=== PATIENT | male | born 2000 | race Caucasian/White ===

== ENCOUNTER 2023-02-04 11:49 | Observation (INO) | payer OTHER ==
--- OUTSIDE RECORDS SUMMARY | 2023-02-04 11:57 | XMS REPORT | Continuity of Care Document ---
:2000 Author Organization [facility] t Address [address] [place] [address]. [address] [place] [address] Care Team Providers Name Role Phone BRYSON LACEYJoelRODRICK Primary Care Physician Unavailable PATEL_NILESH Attending Clinician Unavailable Michael Blount Attending Clinician Unavailable Bernardo Gaona Attending Clinician Unavailable MARK LOMBARDO Attending Clinician Unavailable Dena Kevin MD Attending Clinician Mark Lombardo MD Attending Clinician Nurse, Clementine Urgent Attending Clinician Unavailable Unknown, Attending Attending Clinician Unavailable You Dickerson Attending Clinician YOU HANSON Attending Clinician Unavailable UNKNOWN, ATTENDING Attending Clinician Unavailable Doctor Unassigned, [place] Attending Clinician Unavailable PATEL_NILESH Admitting Clinician Unavailable Physician, No Primary or Family Admitting Clinician UnavailDENA Victor Admitting Clinician Unavailable Payers Payer Name Policy Type Policy Number Effective Date Expiration Date Luis danielle [place] [id number] 2022 [employer] 00:00:00 [facility] [id number] 2022 [employer] [place] 00:00[place]00 (MEDICAID HMO[place]: [id number] 2022 [employer] 00:00:00 - C - [facility] [id number] 2016 2022 [employer] 00:00:00 00:00:00 (MEDICAID HMO[place] [id number] 2022 [employer] 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 3-27 da al al 00:00: [facility] disability Disability 00 al Health Outre[facility] Program Cognitive Cognitive Disease Active Uni vers impairment impairment 9-25 it y of 00:00: [place] 00 Medical Branch Disease Active Univers birthweigh birthweigh 7-20 it y of t less t less 00:00: [place] than 1000 than 1000 00 Medi malou gram and gram and Branch gestation gestation less than less than 28 weeks 28 weeks Pervasive Pervasive Disease Active 2011-06 Uni vers developmen developmen 0-26 it y of luis alfredo luis alfredo 00:00: [place] disorder disorder 00 Medica l Branch 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 Other Other Disease Active 2005- Univers 3-08 ity of infants, infants, 00:00: [place] unspecifie unspecifie 00 Me dical d d Branch (weight)(7 (weight)(7 65.10) 65.10) Allergies, Adverse Reactions, Alerts Allergy Allergy Status Severity Reaction(s) Onset Inactive Treating Comm ents Source Name Type Date Date Clinician No Known DA Active U [facility] Drug -18 Allergie 00:00: s 00 No Known DA Active U 2011-06 [facility] [place] s 00:00: d 00 [facility] NO KNOWN Drug Active Univers ALLERGIE Class 03-06 ity of S 00:00: [place] 00 Medical Branch No Known Propensi Active Univer s Allergie ty to 03-06 ity of s adverse 00:00: [place] reaction 00 Medical s Branch Social History Social Habit Start Date Stop Date Quantity Comments Source Exposure to 2021-11-26 2021-12-06 Not sure [facility] SARS-CoV-2 (event) 00:00:00 18:02:00 Medica l Branch Alcohol intake 2016-11-03 2016-11-03 [facility] 00:00:00 00:00:00 Medical Branch Sex Assigned At 2000 2002 [facility] 00:00:00 00:00:00 Medical Branch Smoking Status Start Date Stop Date Source Never smoker [facility] [place] [facility] Medications Ordered Filled Start Stop Current Ordering Indication Dosage Frequency Signature Comments Components Source Medication Medication Date Date Medication? Clinician (SIG) Name Name taiwo 2021- No 500mg 500 mg, U nivers n 12-07 06-12 Oral, ity of (ZITHROMAX) 04:15: 03:24 [place]CE[place] 1 [place] tablet 500 00 :00 dose, On Medic al mg Sat Branch 12/06/21 at 2315, MORGAN
Re ason for Anti-Infec tive: Empiric Therapy for Suspected Infection< br>Empiric Therapy Site: Respirator y
Durat ion of therapy: 72 hours NaCl 0.9% 2021- No 1000mL at 999 Uni vers (NS) bolus 12-07-12 mL/hr, ity of infusion 00:15: 01:02 1,000 mL, Nam as 1,000 mL 00 :00 IV Medical Infusion, Branch ONCE, 1 dose, On 12/06/21 at 1915, MORGAN azithromyci 2021- No [id number] 250mg Take 1 Univers n 250 mg 12-07 tablet by ity o f tablet 00:00: 04:59 mouth [place] 00 :00 daily for Medical 4 days. Branch ipratropium 2021- No 3mL 3 mL, Univ ers -albuteroL 12-06 Inhalation it y of (DUONEB) 23:13: 23:50 , ONCE [place] 0.5 mg-3 00 :00 NOW, 1 Medical mg(2.5 mg dose, On Branch base)/3 mL Sat nebulizer 12/06/21 at solution 3 1815, mL Routine rufinamide 0 Yes 600mg Take 600 Un wai (BANZEL) 6-11 mg by ity of 200 mg 16:19: mouth 2 [place] tablet 25 (two) Medical times [place] daily with meals. CLOBAZAM Yes Take by [facility] s (ONFI ORAL) 6-11 mouth. ity of 16:19: [address] dexmethylph Yes 15mg Take 15 mg Univers enidate 6-11 by mouth ity of (FOCALIN 16:19: daily. [place] XR) 15 mg 25 Medical 24 hr Branch capsule melatonin Yes Take by [facility] rs 10 mg Cap 6-11 mouth. ity of 16:19: [address] cetirizine Yes 10mg Take 10 mg U nivers (ZYRTEC) 10 6-11 by mouth ity of mg tablet 16:19: daily. [address] DIAZEPAM 0 Yes Insert Univers RECTAL 6-11 into ity of 16:19: rectum. [address] rufinamide 0 Yes 600mg Take 600 Un wai (BANZEL) 6-11 mg by ity of 200 mg 16:19: mouth 2 [place] tablet 25 (two) Medical times [place] daily with meals. CLOBAZAM 2021-0 Yes Take by Univer s (ONFI ORAL) 6-11 mouth. ity of 16:19: [address] Branch dexmethylph 2021-0 Yes 15mg Take 15 mg Univers enidate 6-11 by mouth ity of (FOCALIN 16:19: daily. [place] XR) 15 mg 25 Medical 24 hr Branch capsule melatonin 2021-0 Yes Take by Unive rs 10 mg Cap 6-11 mouth. ity of 16:19: [address] cetirizine 2021-0 Yes 10mg Take 10 mg U nivers (ZYRTEC) 10 6-11 by mouth ity of mg tablet 16:19: daily. [address] DIAZEPAM 2021-0 Yes Insert Univers RECTAL 6-11 into ity of 16:19: rectum. [address] rufinamide 2021-0 Yes 600mg Take 600 Un wai (BANZEL) 6-11 mg by ity of 200 mg 16:19: mouth 2 [place] tablet 25 (two) Medical times [place] daily with meals. CLOBAZAM 2021-0 Yes Take by Univer s (ONFI ORAL) 6-11 mouth. ity of 16:19: [address] dexmethylph 2021-0 Yes 15mg Take 15 mg Univers enidate 6-11 by mouth ity of (FOCALIN 16:19: daily. [place] XR) 15 mg 25 Medical 24 hr Branch capsule melatonin 2021-0 Yes Take by Unive rs 10 mg Cap 6-11 mouth. ity of 16:19: [address] cetirizine 2021-0 Yes 10mg Take 10 mg U nivers (ZYRTEC) 10 6-11 by mouth ity of mg tablet 16:19: daily. [address] DIAZEPAM 2021-0 Yes Insert Univers RECTAL 6-11 into ity of 16:19: rectum. [address] ARIPiprazol 2021-0 Yes 1{tbl} Take 1 Un wai e 5 mg 2-14 tablet by ity of tablet 00:00: mouth [place] 00 every Medical morning. Branch ARIPiprazol 2021-0 Yes 1{tbl} Take 1 Un wai e 5 mg 2-14 tablet by ity of tablet 00:00: mouth [place] 00 every Medical morning. Branch ARIPiprazol Yes 1{tbl} Take 1 Un wai e 5 mg 2-14 tablet by ity of tablet 00:00: mouth [place] 00 every Medical morning. Branch rufinamide Yes 600mg Take 600 Un wai (BANZEL) 901 mg by ity of 200 mg 18:09: mouth 2 [place] tablet 59 (two) Medical times Branch daily with meals. CLOBAZAM Yes Take by [facility] s (ONFI ORAL) 02-26 mouth. ity of 18:09: [place] 59 Medical Branch dexmethylph Yes 15mg Take 15 mg Univers enidate 02-26 by mouth ity of (FOCALIN 18:09: daily. [place] XR) 15 mg 59 Medical 24 hr Branch capsule cetirizine Yes 10mg Take 10 mg U nivers (ZYRTEC) 10 02-26 by mouth ity of mg tablet 18:09: daily. [place] [address] Medical Branch DIAZEPAM Yes Insert Univers RECTAL 02-26 into ity of 18:09: rectum. [place] [address] Medical Branch melatonin Yes Take by [facility] rs 10 mg Cap 11-03 mouth. ity of 15:55: [place] [address] Medical Branch mometasone Yes Apply to Uni vers 0.1 % 5-09 area(s) 2 ity of lotion 00:00: (two) [place] 00 times Medical daily. Branch fluocinolon Yes Apply to Un wai e 5-09 area(s) 2 ity of (DERMA-SMOO 00:00: (two) [place] THE/FS BODY 00 times Medical OIL) 0.01 % daily. Branch body oil mometasone Yes Apply to Uni vers 0.1 % 5-09 area(s) 2 ity of lotion 00:00: (two) [place] 00 times Medical daily. Branch fluocinolon Yes Apply to Un wai e 5-09 area(s) 2 ity of (DERMA-SMOO 00:00: (two) [place] THE/FS BODY 00 times Medical OIL) 0.01 % daily. Branch body oil mometasone Yes Apply to Uni vers 0.1 % 5-09 area(s) 2 ity of lotion 00:00: (two) [place] 00 times Medical daily. Branch fluocinolon Yes Apply to Un wai e 11-03 area(s) 2 ity of (DERMA-SMOO 00:00: (two) [place] THE/FS BODY 00 times Medical OIL) 0.01 % daily. Branch body oil mometasone Yes Apply to Uni vers 0.1 % 11-03 area(s) 2 ity of lotion 00:00: (two) [place] 00 times Medical daily. Branch fluocinolon Yes Apply to Un wai e 509 area(s) 2 ity of (DERMA-SMOO 00:00: (two) [place] THE/FS BODY 00 times Medical OIL) 0.01 % daily. Branch body oil montelukast 2013-06 Yes TAKE 1 TAB Univers (SINGULAIR) 1-09 BY MOUTH ity of 5 mg 00:00: EVERY [place] chewable 00 EVENING. Medical tablet Branch montelukast 2013-06 Yes TAKE 1 TAB Univers (SINGULAIR) 1-09 BY MOUTH ity of 5 mg 00:00: EVERY [place] chewable 00 EVENING. Medical tablet Branch montelukast 2013-06 Yes TAKE 1 TAB Univers (SINGULAIR) 1-09 BY MOUTH ity of 5 mg 00:00: EVERY [place] chewable 00 EVENING. Medical tablet Branch montelukast 2013-06 Yes TAKE 1 TAB Univers (SINGULAIR) 1-09 BY MOUTH ity of 5 mg 00:00: EVERY [place] chewable 00 EVENING. Medical tablet Branch PROVENTIL Yes INHALE 2 Univ ers HFA 90 6-13 PUFFS ity of mcg/actuati 00:00: EVERY 4 Nam as on inhaler 00 HOURS Medic al NEEDED Branch WHEEZING AND FOR SHORTNESS OF BREATH PROVENTIL Yes INHALE 2 Univ ers HFA 90 6-13 PUFFS ity of mcg/actuati 00:00: EVERY 4 Nam as on inhaler 00 HOURS Medic al NEEDED Branch WHEEZING AND FOR SHORTNESS OF BREATH PROVENTIL Yes INHALE 2 Univ ers HFA 90 6-13 PUFFS ity of mcg/actuati 00:00: EVERY 4 Nam as on inhaler 00 HOURS Medic al NEEDED Branch WHEEZING AND FOR SHORTNESS OF BREATH PROVENTIL Yes INHALE 2 Univ ers HFA 90 6-13 PUFFS ity of mcg/actuati 00:00: EVERY 4 Nam as on inhaler 00 HOURS Medic al NEEDED Branch WHEEZING AND FOR SHORTNESS OF BREATH fluticasone Yes 2{puff} Inhale 2 Univers (FLOVENT 2-21 Puffs 2 ity of HFA) 44 00:00: (two) [place] mcg/actuati 00 times Medical on inhaler daily. Branch fluticasone Yes 2{puff} Inhale 2 Univers (FLOVENT 2-21 Puffs 2 ity of HFA) 44 00:00: (two) [place] mcg/actuati 00 times Medical on inhaler daily. Branch fluticasone Yes 2{puff} Inhale 2 Univers (FLOVENT 2-21 Puffs 2 ity of HFA) 44 00:00: (two) [place] mcg/actuati 00 times Medical on inhaler daily. Branch fluticasone Yes 2{puff} Inhale 2 Univers (FLOVENT 2-21 Puffs 2 ity of HFA) 44 00:00: (two) [place] mcg/actuati 00 times Medical on inhaler daily. Branch ziprasidone Yes [id number] 20mg Take 1 Cap Univers (GEODON) 20 8-16 by mouth 2 it y of mg capsule 00:00: (two) [place] 00 times Medical daily with Branch meals. ziprasidone Yes [id number] 20mg Take 1 Cap Univers (GEODON) 20 8-16 by mouth 2 it y of mg capsule 00:00: (two) [place] 00 times Medical daily with Branch meals. ziprasidone Yes [id number] 20mg Take 1 Cap Univers (GEODON) 20 8-16 by mouth 2 it y of mg capsule 00:00: (two) [place] 00 times Medical daily with Branch meals. ziprasidone Yes [id number] 20mg Take 1 Cap Univers (GEODON) 20 8-16 by mouth 2 it y of mg capsule 00:00: (two) [place] 00 times Medical daily with Branch meals. zonisamide Yes 200mg Take 200 Un wai (ZONEGRAN) 2-04 mg by ity of 100 mg 00:00: mouth [place] capsule 00 daily. Medical Branch zonisamide Yes 200mg Take 200 Un wai (ZONEGRAN) 2-04 mg by ity of 100 mg 00:00: mouth [place] capsule 00 daily. Medical Branch zonisamide Yes 200mg Take 200 Un wai (ZONEGRAN) 2-04 mg by ity of 100 mg 00:00: mouth [place] capsule 00 daily. Medical Branch zonisamide Yes 200mg Take 200 Un wai (ZONEGRAN) 2-04 mg by ity of 100 mg 00:00: mouth [place] capsule 00 daily. Medical Branch clonazepam clonazepam No clonazepam [place] 0.25 mg 0.25 mg 0.25 mg da disintegrat disintegrat disintegra [facility] ing tablet ing tablet ting al tablet Health Outreac h Program Depakote ER Depakote ER No 3 Q1D Depakote [place] 500 mg 500 mg ER 500 mg da tablet,exte tablet,exte tablet,ext [facility] nded nded ended al release release release Health Take 3 Take 3 Take 3 Outreac tablets tablets tablets h every day every day every day Program by oral by oral by oral route with route with route with meals for meals for meals for 30 days. 30 days. 30 days. fluticasone fluticasone No fluticason [place] propionate propionate e da 50 50 propionate [facility] mcg/actuati mcg/actuati 50 a l on nasal on nasal mcg/actuat H ealth spray,suspe spray,suspe ion nasal Outreac nsion nsion spray,susp h ension Program Intuniv ER Intuniv ER No 1 Q1D Intuniv ER [place] 3 mg 3 mg 3 mg da tablet,exte tablet,exte tablet,ext [facility] nded nded ended al release release release Health Take 1 Take 1 Take 1 Outreac tablet tablet tablet h every day every day every day Program by oral by oral by oral route at route at route at noon for 30 noon for 30 noon for days. days. 30 days. Klonopin Klonopin No 1 TID Klonopin [place] 0.5 mg 0.5 mg 0.5 mg da tablet Take tablet Take tablet [facility] 1 tablet 3 1 tablet 3 Take 1 a l times a day times a day tablet 3 Health by oral by oral times a Outrea c route as route as day by h needed for needed for oral route Program 30 days. 30 days. as needed for 30 days. Lexapro 20 Lexapro 20 No 1 Q1D Lexapro 20 [place] mg tablet mg tablet mg tablet da Take 1 Take 1 Take 1 [facility] tablet tablet tablet al every day every day every day Health by oral by oral by oral Outrea c route in route in route in h the morning the morning the P rogram for 30 for 30 morning days. days. for 30 days. lithium lithium No 1 BID lithium [place] carbonate carbonate carbonate da ER 300 mg ER 300 mg ER 300 mg [facility] tablet,exte tablet,exte tablet,ext al nded nded ended Health release release release Outrea c Take 1 Take 1 Take 1 h tablet tablet tablet Program twice a day twice a day twice a by oral by oral day by route with route with oral route meals for meals for with meals 30 days. 30 days. for 30 days. aripiprazol aripiprazol No aripiprazo [place] e 2 mg e 2 mg le 2 mg da tablet tablet tablet [facility] al [facility] Outre[facility] Program clobazam 10 clobazam 10 No clobazam [place] mg tablet mg tablet 10 mg da TAKE 1/2 TAKE 1/2 tablet [facility] TABLET BY TABLET BY TAKE 1/2 a l MOUTH EVERY MOUTH EVERY TABLET BY Health MORNING AND MORNING AND MOUTH Outreac 2 TABLETS 2 TABLETS EVERY h AT NIGHT AT NIGHT MORNING Prog naheed AND 2 TABLETS AT NIGHT clonazepam clonazepam No clonazepam [place] 0.25 mg 0.25 mg 0.25 mg da disintegrat disintegrat disintegra [facility] ing tablet ing tablet ting al tablet Health Outreac h Program quetiapine quetiapine No quetiapine [place] 100 mg 100 mg 100 mg da tablet tablet tablet [facility] al [facility]re[facility] Program clonazepam clonazepam No clonazepam [place] 0.5 mg 0.5 mg 0.5 mg da tablet Take tablet Take tablet [facility] 1 tablet 3 1 tablet 3 Take 1 a l times a day times a day tablet 3 Health by oral by oral times a Outrea c route as route as day by h needed for needed for oral route Program 30 days. 30 days. as needed for 30 days. Depakote ER Depakote ER No 3 Q1D Depakote [place] 500 mg 500 mg ER 500 mg da tablet,exte tablet,exte tablet,ext [facility] nded nded ended al release release release Health Take 3 Take 3 Take 3 Outreac tablets tablets tablets h every day every day every day Program by oral by oral by oral route with route with route with meals for meals for meals for 30 days. 30 days. 30 days. fluticasone fluticasone No fluticason [place] propionate propionate e da 50 50 propionate [facility] mcg/actuati mcg/actuati 50 a l on nasal on nasal mcg/actuat H ealth spray,suspe spray,suspe ion nasal Outreac nsion nsion spray,susp h ension Program Intuniv ER Intuniv ER No 1 Q1D Intuniv ER [place] 3 mg 3 mg 3 mg da tablet,exte tablet,exte tablet,ext [facility] nded nded ended al release release release Health Take 1 Take 1 Take 1 Outreac tablet tablet tablet h every day every day every day Program by oral by oral by oral route at route at route at noon for 30 noon for 30 noon for days. days. 30 days. Lexapro 20 Lexapro 20 No 1 Q1D Lexapro 20 [place] mg tablet mg tablet mg tablet da Take 1 Take 1 Take 1 [facility] tablet tablet tablet al every day every day every day Health by oral by oral by oral Outrea c route in route in route in h the morning the morning the P rogram for 30 for 30 morning days. days. for 30 days. lithium lithium No lithium [place] carbonate carbonate carbonate da ER 300 mg ER 300 mg ER 300 mg [facility] tablet,exte tablet,exte tablet,ext al nded nded ended Health release release release Outrea c Take 1 Take 1 Take 1 h tablet tablet tablet Program twice a day twice a day twice a by oral by oral day by route with route with oral route meals for meals for with meals 30 days. 30 days. for 30 days. quetiapine quetiapine No quetiapine [place] 100 mg 100 mg 100 mg da tablet tablet tablet [facility] Program quetiapine quetiapine No quetiapine [place] 200 mg 200 mg 200 mg da tablet Take tablet Take tablet [facility] 1 tablet 1 tablet Take 1 al every day every day tablet Hea lth by oral by oral every day Outr eac route at route at by oral h bedtime for bedtime for route at Program 30 days. 30 days. bedtime for 30 days. quetiapine quetiapine No quetiapine [place] 25 mg 25 mg 25 mg da tablet Take tablet Take tablet [facility] 1 tablet by 1 tablet by Take 1 al oral route oral route tablet by Health three times three times oral route Outreac a day as a day as three h needed for needed for times a Program agitation. agitation. day as needed for agitation. Seroquel Seroquel No 1 Q1D Seroquel [place] 200 mg 200 mg 200 mg da tablet Take tablet Take tablet [facility] 1 tablet 1 tablet Take 1 al every day every day tablet Hea lth by oral by oral every day Outr eac route at route at by oral h bedtime for bedtime for route at Program 30 days. 30 days. bedtime for 30 days. aripiprazol aripiprazol No aripiprazo [place] e 2 mg e 2 mg le 2 mg da tablet tablet tablet [facility] Program clobazam 10 clobazam 10 No clobazam [place] mg tablet mg tablet 10 mg da TAKE 1/2 TAKE 1/2 tablet [facility] TABLET BY TABLET BY TAKE 1/2 a l MOUTH EVERY MOUTH EVERY TABLET BY Health MORNING AND MORNING AND MOUTH Outreac 2 TABLETS 2 TABLETS EVERY h AT NIGHT AT NIGHT MORNING Prog naheed AND 2 TABLETS AT NIGHT clonazepam clonazepam No clonazepam [place] 0.25 mg 0.25 mg 0.25 mg da disintegrat disintegrat disintegra [facility] ing tablet ing tablet ting al tablet Health Outreac h Program clonazepam clonazepam No clonazepam [place] 0.5 mg 0.5 mg 0.5 mg da tablet Take tablet Take tablet [facility] 1 tablet 3 1 tablet 3 Take 1 a l times a day times a day tablet 3 Health by oral by oral times a Outrea c route as route as day by h needed for needed for oral route Program 30 days. 30 days. as needed for 30 days. Depakote ER Depakote ER No 3 Q1D Depakote [place] 500 mg 500 mg ER 500 mg da tablet,exte tablet,exte tablet,ext [facility] nded nded ended al release release release Health Take 3 Take 3 Take 3 Outreac tablets tablets tablets h every day every day every day Program by oral by oral by oral route with route with route with meals for meals for meals for 30 days. 30 days. 30 days. fluticasone fluticasone No fluticason [place] propionate propionate e da 50 50 propionate [facility] mcg/actuati mcg/actuati 50 a l on nasal on nasal mcg/actuat H ealth spray,suspe spray,suspe ion nasal Outreac nsion nsion spray,susp h ension Program Intuniv ER Intuniv ER No 1 Q1D Intuniv ER [place] 3 mg 3 mg 3 mg da tablet,exte tablet,exte tablet,ext [facility] nded nded ended al release release release Health Take 1 Take 1 Take 1 Outreac tablet tablet tablet h every day every day every day Program by oral by oral by oral route at route at route at noon for 30 noon for 30 noon for days. days. 30 days. Lexapro 20 Lexapro 20 No 1 Q1D Lexapro 20 [place] mg tablet mg tablet mg tablet da Take 1 Take 1 Take 1 [facility] tablet tablet tablet al every day every day every day Health by oral by oral by oral Outrea c route in route in route in h the morning the morning the P rogram for 30 for 30 morning days. days. for 30 days. lithium lithium No lithium [place] carbonate carbonate carbonate da ER 300 mg ER 300 mg ER 300 mg [facility] tablet,exte tablet,exte tablet,ext al nded nded ended Health release release release Outrea c Take 1 Take 1 Take 1 h tablet tablet tablet Program twice a day twice a day twice a by oral by oral day by route with route with oral route meals for meals for with meals 30 days. 30 days. for 30 days. quetiapine quetiapine No quetiapine [place] 100 mg 100 mg 100 mg da tablet tablet tablet [facility] Program quetiapine quetiapine No quetiapine [place] 200 mg 200 mg 200 mg da tablet Take tablet Take tablet [facility] 1 tablet 1 tablet Take 1 al every day every day tablet Hea lth by oral by oral every day Outr eac route at route at by oral h bedtime for bedtime for route at Program 30 days. 30 days. bedtime for 30 days. quetiapine quetiapine No quetiapine [place] 25 mg 25 mg 25 mg da tablet Take tablet Take tablet [facility] 1 tablet by 1 tablet by Take 1 al oral route oral route tablet by Health three times three times oral route Outreac a day as a day as three h needed for needed for times a Program agitation. agitation. day as needed for agitation. Seroquel Seroquel No 1 Q1D Seroquel [place] 400 mg 400 mg 400 mg da tablet Take tablet Take tablet [facility] 1 tablet 1 tablet Take 1 al every day every day tablet Hea lth by oral by oral every day Outr eac route at route at by oral h bedtime for bedtime for route at Program 30 days. 30 days. bedtime for 30 days. aripiprazol aripiprazol No aripiprazo [place] e 2 mg e 2 mg le 2 mg da tablet tablet tablet [facility] Outre[facility] Program clobazam 10 clobazam 10 No clobazam [place] mg tablet mg tablet 10 mg da TAKE 1/2 TAKE 1/2 tablet [facility] TABLET BY TABLET BY TAKE 1/2 a l MOUTH EVERY MOUTH EVERY TABLET BY [facility] MORNING AND MORNING AND MOUTH Outreac 2 TABLETS 2 TABLETS EVERY h AT NIGHT AT NIGHT MORNING Prog naheed AND 2 TABLETS AT NIGHT clonazepam clonazepam No clonazepam [place] 0.25 mg 0.25 mg 0.25 mg da disintegrat disintegrat disintegra [facility] ing tablet ing tablet ting al tablet Health Outreac h Program clonazepam clonazepam No clonazepam [place] 0.5 mg 0.5 mg 0.5 mg da tablet Take tablet Take tablet [facility] 1 tablet 3 1 tablet 3 Take 1 a l times a day times a day tablet 3 Health by oral by oral times a Outrea c route as route as day by h needed for needed for oral route Program 30 days. 30 days. as needed for 30 days. Depakote ER Depakote ER No 3 Q1D Depakote [facility] 500 mg 500 mg ER 500 mg da tablet,exte tablet,exte tablet,ext [facility] release release release Health Take 3 Take 3 Take 3 [facility] tablets tablets tablets h every day every day every day Program by oral by oral by oral route with route with route with meals for meals for meals for 30 days. 30 days. 30 days. fluticasone fluticasone No fluticason [facility] propionate propionate e da 50 50 propionate [facility] mcg/actuati mcg/actuati 50 a l on nasal on nasal mcg/actuat H ealth spray,suspe spray,suspe ion nasal Outreac nsion nsion spray,susp h ension Program Intuniv ER Intuniv ER No 1 Q1D Intuniv ER [facility] 3 mg 3 mg 3 mg da tablet,exte tablet,exte tablet,ext [facility] release release release Health Take 1 Take 1 Take 1 [facility] tablet tablet tablet h every day every day every day Program by oral by oral by oral route at route at route at noon for 30 noon for 30 noon for days. days. 30 days. Lexapro 20 Lexapro 20 No 1 Q1D Lexapro 20 [facility] mg tablet mg tablet mg tablet da Take 1 Take 1 Take 1 [facility] tablet tablet tablet al every day every day every day Health by oral by oral by oral Outrea c route in route in route in h the morning the morning the P rogram for 30 for 30 morning days. days. for 30 days. lithium lithium No lithium [facility] carbonate carbonate carbonate da ER 300 mg ER 300 mg ER 300 mg [facility] tablet,exte tablet,exte tablet,ext al nded nded ended Health release release release Outrea c Take 1 Take 1 Take 1 h tablet tablet tablet Program twice a day twice a day twice a by oral by oral day by route with route with oral route meals for meals for with meals 30 days. 30 days. for 30 days. olanzapine olanzapine No olanzapine [facility] 20 mg 20 mg 20 mg da tablet Take tablet Take tablet [facility] 1 tablet 1 tablet Take 1 al every day every day tablet Hea lth by oral by oral every day Outr eac route at route at by oral h bedtime for bedtime for route at Program 30 days. 30 days. bedtime for 30 days. quetiapine quetiapine No quetiapine [facility] 100 mg 100 mg 100 mg da tablet tablet tablet [facility] Seroquel 25 Seroquel 25 No Seroquel [facility] mg tablet mg tablet 25 mg da Take 1 Take 1 tablet [facility] tablet by tablet by Take 1 al oral route oral route tablet by Health three times three times oral route Outre[facility] a day as a day as three h needed for needed for times a Program agitation. agitation. day as needed for agitation. aripiprazol aripiprazol No aripiprazo [facility] e 2 mg e 2 mg le 2 mg da tablet tablet tablet [facility] clobazam 10 clobazam 10 No clobazam [facility] mg tablet mg tablet 10 mg da TAKE 1/2 TAKE 1/2 tablet [facility] TABLET BY TABLET BY TAKE 1/2 a l MOUTH EVERY MOUTH EVERY TABLET BY Health MORNING AND MORNING AND MOUTH [facility] 2 TABLETS 2 TABLETS EVERY h AT NIGHT AT NIGHT MORNING Prog naheed AND 2 TABLETS AT NIGHT clonazepam clonazepam No clonazepam [facility] 0.25 mg 0.25 mg 0.25 mg da disintegrat disintegrat disintegra [facility] tablet ing tablet ting al tablet Health Outreac h Program clonazepam clonazepam No clonazepam [facility] 0.5 mg 0.5 mg 0.5 mg da tablet Take tablet Take tablet [facility] 1 tablet 3 1 tablet 3 Take 1 a l times a day times a day tablet 3 Health by oral by oral times a Outrea c route as route as day by h needed for needed for oral route Program 30 days. 30 days. as needed for 30 days. Depakote ER Depakote ER No Depakote [facility] 500 mg 500 mg ER 500 mg da tablet,exte tablet,exte tablet,ext [facility] release release release Health Take 1 Take 1 Take 1 [facility] tablet by tablet by tablet by h mouth every mouth every mouth Program morning morning every with meals, with meals, morning take 2 take 2 with tablets by tablets by meals, mouth every mouth every take 2 night at night at tablets by bedtime bedtime mouth with food. with food. every night at bedtime with food. fluticasone fluticasone No fluticason [facility] propionate propionate e da 50 50 propionate [facility] mcg/actuati mcg/actuati 50 a l on nasal on nasal mcg/actuat H ealth spray,suspe spray,suspe ion nasal Outre[facility] nsion nsion spray,susp h ension Program Intuniv ER Intuniv ER No Intuniv ER [facility] 3 mg 3 mg 3 mg da tablet,exte tablet,exte tablet,ext [facility] ended [facility] release release release Health Take 1 Take 1 Take 1 [facility] tablet(s) tablet(s) tablet(s) h every day every day every day Program by oral by oral by oral route at route at route at noon for 30 noon for 30 noon for days. days. 30 days. Lexapro 20 Lexapro 20 No Lexapro 20 [facility] mg tablet mg tablet mg tablet da Take 1 Take 1 Take 1 [facility] tablet(s) tablet(s) tablet(s) al every day every day every day Health by oral by oral by oral Out[facility] route in route in route in h the morning the morning the P rogram for 30 for 30 morning days. days. for 30 days. lithium lithium No lithium [facility] carbonate carbonate carbonate da ER 300 mg ER 300 mg ER 300 mg [facility] tablet,exte tablet,exte tablet,ext al nded nded ended Health release release release Outrea c Take 1 Take 1 Take 1 h tablet(s) tablet(s) tablet(s) Program twice a day twice a day twice a by oral by oral day by route with route with oral route meals for meals for with meals 30 days. 30 days. for 30 days. montelukast montelukast No montelukas [facility] 10 mg 10 mg t 10 mg da tablet tablet tablet [facility] mg 75 mg 75 mg da disintegrat disintegrat disintegra [facility] ing tablet ing tablet ting al tablet Health Outreac h Program olanzapine olanzapine No olanzapine [facility] 20 mg 20 mg 20 mg da tablet Take tablet Take tablet [facility] 1.5 1.5 Take 1.5 al tablet(s) tablet(s) tablet(s) Health every day every day every day [facility] by oral by oral by oral h route at route at route at Pro gram bedtime for bedtime for bedtime 30 days. 30 days. for 30 days. quetiapine quetiapine No quetiapine [facility] 100 mg 100 mg 100 mg da tablet tablet tablet [facility] Seroquel 25 Seroquel 25 No Seroquel [facility] mg tablet mg tablet 25 mg da Take 1 Take 1 tablet [facility] tablet by tablet by Take 1 al oral route oral route tablet by Health three times three times oral route Out[facility] a day as a day as three h needed for needed for times a Program agitation. agitation. day as needed for agitation. aripiprazol aripiprazol No aripiprazo [facility] e 2 mg e 2 mg le 2 mg da tablet tablet tablet [facility] clobazam 10 clobazam 10 No clobazam [facility] mg tablet mg tablet 10 mg da TAKE 1/2 TAKE 1/2 tablet [facility] TABLET BY TABLET BY TAKE 1/2 a l MOUTH EVERY MOUTH EVERY TABLET BY Health MORNING AND MORNING AND MOUTH [facility] 2 TABLETS 2 TABLETS EVERY h AT NIGHT AT NIGHT MORNING Prog naheed AND 2 TABLETS AT NIGHT clonazepam clonazepam No clonazepam [facility] 0.25 mg 0.25 mg 0.25 mg da disintegrat disintegrat disintegra [facility] tablet ing tablet ting al tablet Health Outreac h Program clonazepam clonazepam No clonazepam [facility] 0.5 mg 0.5 mg 0.5 mg da tablet Take tablet Take tablet [facility] 1 tablet 3 1 tablet 3 Take 1 a l times a day times a day tablet 3 Health by oral by oral times a [facility] route as route as day by h needed for needed for oral route Program 30 days. 30 days. as needed for 30 days. divalproex divalproex No divalproex [facility] ER 500 mg ER 500 mg ER 500 mg da tablet,exte tablet,exte tablet,ext [facility] ended [facility] release 24 release 24 release 24 Health hr Take 1 hr Take 1 hr Take 1 [facility] tablet by tablet by tablet by h mouth every mouth every mouth Program morning morning every with meals, with meals, morning take 2 take 2 with tablets by tablets by meals, mouth every mouth every take 2 night at night at tablets by bedtime bedtime mouth with food. with food. every night at bedtime with food. escitalopra escitalopra No escitalopr [facility] m 20 mg m 20 mg am 20 mg da tablet Take tablet Take tablet [facility] 1 tablet(s) 1 tablet(s) Take 1 al every day every day tablet(s) Health by oral by oral every day Outr eac route in route in by oral h the morning the morning route in Program for 30 for 30 the days. days. morning for 30 days. fluticasone fluticasone No fluticason [facility] propionate propionate e da 50 50 propionate [facility] mcg/actuati mcg/actuati 50 a l on nasal on nasal mcg/actuat H ealth spray,suspe spray,suspe ion nasal Outre[facility] nsion nsion spray,susp h ension Program guanfacine guanfacine No guanfacine [facility] ER 3 mg ER 3 mg ER 3 mg da tablet,exte tablet,exte tablet,ext [facility]ded ended al release 24 release 24 release 24 Health hr Take 1 hr Take 1 hr Take 1 [facility] tablet(s) tablet(s) tablet(s) h every day every day every day Program by oral by oral by oral route at route at route at noon for 30 noon for 30 noon for days. days. 30 days. lithium lithium No lithium [facility] carbonate carbonate carbonate da ER 300 mg ER 300 mg ER 300 mg [facility] tablet,exte tablet,exte tablet,ext al nded nded ended Health release release release [facility] Take 1 Take 1 Take 1 h tablet(s) tablet(s) tablet(s) Program twice a day twice a day twice a by oral by oral day by route with route with oral route meals for meals for with meals 30 days. 30 days. for 30 days. montelukast montelukast No montelukas [facility] 10 mg 10 mg t 10 mg da tablet tablet tablet [facility] Nurtec ODT Nurtec ODT No Nurtec ODT [facility] 75 mg 75 mg 75 mg da disintegrat disintegrat disintegra [facility] ing tablet ing tablet ting al tablet Health Outreac h Program olanzapine olanzapine No olanzapine [facility] 20 mg 20 mg 20 mg da tablet Take tablet Take tablet [facility] 1.5 1.5 Take 1.5 al tablet(s) tablet(s) tablet(s) Health every day every day every day [facility] by oral by oral by oral h route at route at route at Pro gram bedtime for bedtime for bedtime 30 days. 30 days. for 30 days. quetiapine quetiapine No quetiapine [facility] 100 mg 100 mg 100 mg da tablet tablet tablet [facility] quetiapine quetiapine No quetiapine [facility] 25 mg 25 mg 25 mg da tablet Take tablet Take tablet [facility] 1 tablet by 1 tablet by Take 1 al oral route oral route tablet by Health three times three times oral route Out[facility] a day as a day as three h needed for needed for times a Program agitation. agitation. day as needed for agitation. aripiprazol aripiprazol No aripiprazo [facility] e 2 mg e 2 mg le 2 mg da tablet tablet tablet [facility] clobazam 10 clobazam 10 No clobazam [facility] mg tablet mg tablet 10 mg da TAKE 1/2 TAKE 1/2 tablet [facility] TABLET BY TABLET BY TAKE 1/2 a l MOUTH EVERY MOUTH EVERY TABLET BY Health MORNING AND MORNING AND MOUTH [facility] 2 TABLETS 2 TABLETS EVERY h AT NIGHT AT NIGHT MORNING Prog naheed AND 2 TABLETS AT NIGHT aripiprazol aripiprazol No aripiprazo [facility] e 2 mg e 2 mg le 2 mg da tablet tablet tablet [facility] clonazepam clonazepam No clonazepam [facility] 0.25 mg 0.25 mg 0.25 mg da disintegrat disintegrat disintegra [facility] ing tablet ing tablet ting al tablet Health Outreac h Program clonazepam clonazepam No clonazepam [facility] 0.5 mg 0.5 mg 0.5 mg da tablet Take tablet Take tablet [facility] 1 tablet 3 1 tablet 3 Take 1 a l times a day times a day tablet 3 Health by oral by oral times a Out[facility] c route as route as day by h needed for needed for oral route Program 30 days. 30 days. as needed for 30 days. Depakote ER Depakote ER No 3 Q1D Depakote [facility] 500 mg 500 mg ER 500 mg da tablet,exte tablet,exte tablet,ext [facility] n[facility]ded ended al release release release Health Take 3 Take 3 Take 3 [facility] tablets tablets tablets h every day every day every day Program by oral by oral by oral route with route with route with meals for meals for meals for 30 days. 30 days. 30 days. fluticasone fluticasone No fluticason [facility] propionate propionate e da 50 50 propionate [facility] mcg/actuati mcg/actuati 50 a l on nasal on nasal mcg/actuat H ealth spray,suspe spray,suspe ion nasal Outre[facility] nsion nsion spray,susp h ension Program Intuniv ER Intuniv ER No 1 Q1D Intuniv ER [facility] 3 mg 3 mg 3 mg da tablet,exte tablet,exte tablet,ext [facility] nded nded ended al release release release Health Take 1 Take 1 Take 1 [facility] tablet tablet tablet h every day every day every day Program by oral by oral by oral route at route at route at noon for 30 noon for 30 noon for days. days. 30 days. Lexapro 20 Lexapro 20 No 1 Q1D Lexapro 20 [facility] mg tablet mg tablet mg tablet da Take 1 Take 1 Take 1 [facility] tablet tablet tablet al every day every day every day Health by oral by oral by oral Outrea c route in route in route in h the morning the morning the P rogram for 30 for 30 morning days. days. for 30 days. lithium lithium No lithium [facility] carbonate carbonate carbonate da ER 300 mg ER 300 mg ER 300 mg [facility] tablet,exte tablet,exte tablet,ext al nded nded ended Health release release release Outrea c Take 1 Take 1 Take 1 h tablet tablet tablet Program twice a day twice a day twice a by oral by oral day by route with route with oral route meals for meals for with meals 30 days. 30 days. for 30 days. quetiapine quetiapine No quetiapine [facility] 100 mg 100 mg 100 mg da tablet tablet tablet [facility] quetiapine quetiapine No quetiapine [facility] 200 mg 200 mg 200 mg da tablet Take tablet Take tablet [facility] 1 tablet 1 tablet Take 1 al every day every day tablet Hea lth by oral by oral every day Outr eac route at route at by oral h bedtime for bedtime for route at Program 30 days. 30 days. bedtime for 30 days. Immunizations Ordered Immunization Filled Immunization Date Status Commen ts Source Name Name COVID-19, mRNA, COVID-19, mRNA, 2022-03-10 Completed [facility] LNP-S, bivalent, PF, LNP-S, bivalent, PF, 00:00:00 [facility] 50 mcg/0.5 mL dose 50 mcg/0.5 mL dose Outreach Program ([facility]) - ML (Moderna) - ML influenza, influenza, 2022-03-10 Completed [facility] injectable, injectable, 00:00:00 [facility] quadrivalent, quadrivalent, Out[facility] preservative free - preservative free - ML ML COVID-19, mRNA, COVID-19, mRNA, 2022-03-10 Completed [facility] LNP-S, bivalent, PF, LNP-S, bivalent, PF, 00:00:00 [facility] 50 mcg/0.5 mL dose 50 mcg/0.5 mL dose Outreach Program ([facility]) - ML (Moderna) - ML influenza, influenza, 2022-03-10 Completed [facility] injectable, injectable, 00:00:00 [facility] quadrivalent, quadrivalent, Out[facility] preservative free - preservative free - ML ML COVID-19, mRNA, COVID-19, mRNA, 2022-03-10 Completed [facility] LNP-S, bivalent, PF, LNP-S, bivalent, PF, 00:00:00 [facility] 50 mcg/0.5 mL dose 50 mcg/0.5 mL dose Outreach Program ([facility]) - ML (Moderna) - ML influenza, influenza, 2022-03-10 Completed [facility] injectable, injectable, 00:00:00 [facility] quadrivalent, quadrivalent, Outreach Program preservative free - preservative free - ML ML COVID-19, mRNA, COVID-19, mRNA, 2022-03-10 Completed [facility] LNP-S, bivalent, PF, LNP-S, bivalent, PF, 00:00:00 [facility] 50 mcg/0.5 mL dose 50 mcg/0.5 mL dose Outreach Program ([facility]) - ML (Moderna) - ML influenza, influenza, 2022-03-10 Completed [facility] injectable, injectable, 00:00:00 [facility] quadrivalent, quadrivalent, Outreach Program preservative free - preservative free - ML ML COVID-19, mRNA, COVID-19, mRNA, 2022-03-10 Completed [facility] LNP-S, bivalent, PF, LNP-S, bivalent, PF, 00:00:00 [facility] 50 mcg/0.5 mL dose 50 mcg/0.5 mL dose Outreach Program (Modern[facility]) - ML (Moderna) - ML influenza, influenza, 2022-03-10 Completed [facility] injectable, injectable, 00:00:00 [facility] quadrivalent, quadrivalent, Outreach Program preservative free - preservative free - ML ML COVID-19, mRNA, COVID-19, mRNA, 2022-03-10 Completed [facility] LNP-S, bivalent, PF, LNP-S, bivalent, PF, 00:00:00 [facility] 50 mcg/0.5 mL dose 50 mcg/0.5 mL dose Outreach Program (Modern[facility]) - ML (Moderna) - ML influenza, influenza, 2022-03-10 Completed [facility] injectable, injectable, 00:00:00 [facility] quadrivalent, quadrivalent, Outreach Program preservative free - preservative free - ML ML COVID-19, mRNA, COVID-19, mRNA, 2022-03-10 Completed [facility] LNP-S, bivalent, PF, LNP-S, bivalent, PF, 00:00:00 [facility] 50 mcg/0.5 mL dose 50 mcg/0.5 mL dose Outreach Program (Moderna) - ML (Moderna) - ML influenza, influenza, 2022-03-10 Completed [facility] injectable, injectable, 00:00:00 [facility] quadrivalent, quadrivalent, Outreach Program preservative free - preservative free - ML ML influenza, influenza, 2021-08-21 Completed [facility] recombinant, recombinant, 00:00:00 [facility] quadrIvalent,injecta quadrIvalent,injecta Outreach Program ble, preservative ble, preservative free - ML free - ML influenza, influenza, 2021-08-21 Completed [facility] recombinant, recombinant, 00:00:00 [facility] quadrIvalent,injecta quadrIvalent,injecta Outreach Program ble, preservative ble, preservative free - ML free - ML influenza, influenza, 2021-08-21 Completed [facility] recombinant, recombinant, 00:00:00 [facility] quadrIvalent,injecta quadrIvalent,injecta Outreach Program ble, preservative ble, preservative free - ML free - ML influenza, influenza, 2021-08-21 Completed [facility] recombinant, recombinant, 00:00:00 [facility] quadrIvalent,injecta quadrIvalent,injecta Outreach Program ble, preservative ble, preservative free - ML free - ML influenza, influenza, 2021-08-21 Completed [facility] recombinant, recombinant, 00:00:00 [facility] quadrIvalent,injecta quadrIvalent,injecta Outreach Program ble, preservative ble, preservative free - ML free - ML influenza, influenza, 2021-08-21 Completed [facility] recombinant, recombinant, 00:00:00 [facility] quadrIvalent,injecta quadrIvalent,injecta Outreach Program ble, preservative ble, preservative free - ML free - ML influenza, influenza, 2021-08-21 Completed [facility] recombinant, recombinant, 00:00:00 [facility] quadrIvalent,injecta quadrIvalent,injecta Outreach Program ble, preservative ble, preservative free - ML free - ML COVID-19, mRNA, COVID-19, mRNA, 2020-08-28 Completed [facility] LNP-S, PF, 30 LNP-S, PF, 30 00:[facility] mcg/0.3 mL dose mcg/0.3 mL dose Outr each Program ([employer]) - ([employer]) - ML ML COVID-19, mRNA, COVID-19, mRNA, 2020-08-28 Completed [facility] LNP-S, PF, 30 LNP-S, PF, 30 00:00:00 [facility] mcg/0.3 mL dose mcg/0.3 mL dose Outr each Program ([employer]) - ([employer]) - ML ML COVID-19, mRNA, COVID-19, mRNA, 2020-08-28 Completed [facility] LNP-S, PF, 30 LNP-S, PF, 30 00:00:00 [facility] mcg/0.3 mL dose mcg/0.3 mL dose Outr each Program ([employer]) - ([employer]) - ML ML COVID-19, mRNA, COVID-19, mRNA, 2020-08-28 Completed [facility] LNP-S, PF, 30 LNP-S, PF, 30 00:00:00 [facility] mcg/0.3 mL dose mcg/0.3 mL dose [facility]) - ML ML COVID-19, mRNA, COVID-19, mRNA, 2020-08-28 Completed [facility] LNP-S, PF, 30 LNP-S, PF, 30 00:00:00 [facility] mcg/0.3 mL dose mcg/0.3 mL dose Out[facility] each [facility] ([employer]) - ML ML COVID-19, mRNA, COVID-19, mRNA, 2020-08-28 Completed [facility] LNP-S, PF, 30 LNP-S, PF, 30 00:00:00 [facility] mcg/0.3 mL dose mcg/0.3 mL dose Outr each Program ([employer]) - ([employer]) - ML ML COVID-19, mRNA, COVID-19, mRNA, 2020-08-28 Completed [facility] LNP-S, PF, 30 LNP-S, PF, 30 00:00:00 [facility] mcg/0.3 mL dose mcg/0.3 mL dose Outr each Program ([employer]) - ([employer]) - ML ML COVID-19, mRNA, COVID-19, mRNA, 2020-07-23 Completed [facility] LNP-S, PF, 30 LNP-S, PF, 30 00:00:00 [facility] mcg/0.3 mL dose mcg/0.3 mL dose Outr each Program ([employer]) - ([employer]) - ML ML COVID-19, mRNA, COVID-19, mRNA, 2020-07-23 Completed [facility] LNP-S, PF, 30 LNP-S, PF, 30 00:00:00 [facility] mcg/0.3 mL dose mcg/0.3 mL dose Outr each Program ([employer]) - ([employer]) - ML ML COVID-19, mRNA, COVID-19, mRNA, 2020-07-23 Completed [facility] LNP-S, PF, 30 LNP-S, PF, 30 00:00:00 [facility] mcg/0.3 mL dose mcg/0.3 mL dose Outr each Program ([employer]) - ([employer]) - ML ML COVID-19, mRNA, COVID-19, mRNA, 2020-07-23 Completed [facility] LNP-S, PF, 30 LNP-S, PF, 30 00:00:00 [facility] mcg/0.3 mL dose mcg/0.3 mL dose Outr each Program ([employer]) - ([employer]) - ML ML COVID-19, mRNA, COVID-19, mRNA, 2020-07-23 Completed [facility] LNP-S, PF, 30 LNP-S, PF, 30 00:00:00 [facility] mcg/0.3 mL dose mcg/0.3 mL dose Outr each Program ([employer]) - ([employer]) - ML ML COVID-19, mRNA, COVID-19, mRNA, 2020-07-23 Completed [facility] LNP-S, PF, 30 LNP-S, PF, 30 00:00:00 [facility] mcg/0.3 mL dose mcg/0.3 mL dose Outr each Program ([employer]) - ([employer]) - ML ML COVID-19, mRNA, COVID-19, mRNA, 2020-07-23 Completed [facility] LNP-S, PF, 30 LNP-S, PF, 30 00:00:00 [facility] mcg/0.3 mL dose mcg/0.3 mL dose Outr each Program ([employer]) - ([employer]) - ML ML HPV9 - ML HPV9 - ML 2019-08-23 Completed [facility] 00[facility] meningococcal B, meningococcal B, 2019-08-23 Completed [place] recombinant - ML recombinant - ML 00:00:00 [facility] HPV9 - ML HPV9 - ML 2019-08-23 Completed [facility] 00:00:00 [facility] Pro[facility] am meningococcal B, meningococcal B, 2019-08-23 Completed [place] recombinant - ML recombinant - ML 00:00:00 [facility]gr am HPV9 - ML HPV9 - ML 2019-08-23 Completed [facility] 00:00:00 [facility] Progr am meningococcal B, meningococcal B, 2019-08-23 Completed [place] recombinant - ML recombinant - ML 00:00:00 [facility] Progr am HPV9 - ML HPV9 - ML 2019-08-23 Completed [facility] 00:00:00 [facility] Progr am meningococcal B, meningococcal B, 2019-08-23 Completed [place] recombinant - ML recombinant - ML 00:00:00 [facility] am HPV9 - ML HPV9 - ML 2019-08-23 Completed [facility] 00:00:00 [facility] Progr am meningococcal B, meningococcal B, 2019-08-23 Completed [place] recombinant - ML recombinant - ML 00:00:00 [facility] Progr am HPV9 - ML HPV9 - ML 2019-08-23 Completed [facility] 00:00:00 [facility] Progr am meningococcal B, meningococcal B, 2019-08-23 Completed [place] recombinant - ML recombinant - ML 00:00:00 [facility] Progr am HPV9 - ML HPV9 - ML 2019-08-23 Completed [facility] 00:00:00 [facility] Pro[facility] am meningococcal B, meningococcal B, 2019-08-23 Completed [place] recombinant - ML recombinant - ML 00:00:00 [facility] influenza, influenza, 2019-05-02 Completed [facility] injectable, injectable, 00:00:00 [facility] quadrivalent, quadrivalent, Outreach Program preservative free - preservative free - ML ML influenza, influenza, 2019-05-02 Completed [facility] injectable, injectable, 00:00:00 [facility] quadrivalent, quadrivalent, Outreach Program preservative free - preservative free - ML ML influenza, influenza, 2019-05-02 Completed [facility] injectable, injectable, 00:00:00 [facility] quadrivalent, quadrivalent, Outreach Program preservative free - preservative free - ML ML influenza, influenza, 2019-05-02 Completed [facility] injectable, injectable, 00:00:00 [facility] quadrivalent, quadrivalent, Outreach Program preservative free - preservative free - ML ML influenza, influenza, 2019-05-02 Completed [facility] injectable, injectable, 00:00:00 [facility] quadrivalent, quadrivalent, Outreach Program preservative free - preservative free - ML ML influenza, influenza, 2019-05-02 Completed [facility] injectable, injectable, 00:00:00 [facility] quadrivalent, quadrivalent, Outreach Program preservative free - preservative free - ML ML influenza, influenza, 2019-05-02 Completed [facility] injectable, injectable, 00:00:00 [facility] quadrivalent, quadrivalent, Outreach Program preservative free - preservative free - ML ML HPV9 - ML HPV9 - ML 2018-12-22 Completed [facility] 00:[facility] HPV9 - ML HPV9 - ML 2018-12-22 Completed [facility] 00:[facility] HPV9 - ML HPV9 - ML 2018-12-22 Completed [facility] 00:00:[facility] HPV9 - ML HPV9 - ML 2018-12-22 Completed [facility] 00:00:[facility] HPV9 - ML HPV9 - ML 2018-12-22 Completed [facility] 00:00:[facility] HPV9 - ML HPV9 - ML 2018-12-22 Completed [facility] 00:00:00 [facility] HPV9 - ML HPV9 - ML 2018-12-22 Completed [facility] 00:00[facility] influenza, influenza, 2018-08-25 Completed [facility] injectable, injectable, 00:00:00 [facility] quadrivalent, [facility] preservative free - preservative free - ML ML meningococcal MCV4P meningococcal MCV4P 2018-08-25 Completed [facility] - ML - ML 00:00:00 [facility] HPV9 - ML HPV9 - ML 2018-08-25 Completed [facility] 00:00:[facility] meningococcal B, meningococcal B, 2018-08-25 Completed [place] recombinant - ML recombinant - ML 00:[facility], influenza, 2018-08-25 Completed [place] injectable, injectable, 00:00:00 [facility] quadrivalent, [facility] preservative free - preservative free - ML ML meningococcal MCV4P meningococcal MCV4P 2018-08-25 Completed [place] - ML - ML 00:00:00 [facility] HPV9 - ML HPV9 - ML 2018-08-25 Completed [place] 00:00:00 [facility] meningococcal B, meningococcal B, 2018-08-25 Completed [place] recombinant - ML recombinant - ML 00:00:[facility] influenza, influenza, 2018-08-25 Completed [place] injectable, injectable, 00:00:00 [facility] quadrivalent, [facility] preservative free - preservative free - ML ML meningococcal MCV4P meningococcal MCV4P 2018-08-25 Completed [place] - ML - ML 00:00:00 [facility] HPV9 - ML HPV9 - ML 2018-08-25 Completed [place] 00:00:00 [facility] meningococcal B, meningococcal B, 2018-08-25 Completed [place] recombinant - ML recombinant - ML 00:00:[address] [facility] influenza, influenza, 2018-08-25 Completed [place] injectable, injectable, 00:00:00 [facility], quadrivalent, Out[facility] Program preservative free - preservative free - ML ML meningococcal MCV4P meningococcal MCV4P 2018-08-25 Completed [place] - ML - ML 00:00:00 [facility] HPV9 - ML HPV9 - ML 2018-08-25 Completed [place] 00:00:00 [facility] meningococcal B, meningococcal B, 2018-08-25 Completed [place] recombinant - ML recombinant - ML 00:00:[address] [facility] influenza, influenza, 2018-08-25 Completed [place] injectable, injectable, 00:00:00 [facility] quadrivalent, [facility] Program preservative free - preservative free - ML ML meningococcal MCV4P meningococcal MCV4P 2018-08-25 Completed [place] - ML - ML 00:00:00 [facility] HPV9 - ML HPV9 - ML 2018-08-25 Completed [place] 00:00:00 [facility] meningococcal B, meningococcal B, 2018-08-25 Completed [place] recombinant - ML recombinant - ML 00:00:00 [facility] influenza, influenza, 2018-08-25 Completed [place] injectable, injectable, 00:00:00 [facility], quadrivalent, Out[facility] Program preservative free - preservative free - ML ML meningococcal MCV4P meningococcal MCV4P 2018-08-25 Completed [place] - ML - ML 00:00:00 [facility] HPV9 - ML HPV9 - ML 2018-08-25 Completed [place] 00:00:00 [facility] meningococcal B, meningococcal B, 2018-08-25 Completed [place] recombinant - ML recombinant - ML 00:00:00 [facility] influenza, influenza, 2018-08-25 Completed [place] injectable, injectable, 00:00:00 [facility] quadrivalent, Out[facility] Program preservative free - preservative free - ML ML meningococcal MCV4P meningococcal MCV4P 2018-08-25 Completed [place] - ML - ML 00:00:00 [facility] HPV9 - ML HPV9 - ML 2018-08-25 Completed [place] 00:00:00 [facility] meningococcal B, meningococcal B, 2018-08-25 Completed [place] recombinant - ML recombinant - ML 00:00:[address] [facility] influenza, influenza, 2017-09-13 Completed [place] injectable, injectable, 00:00:00 [facility], quadrivalent, Out[facility] Program preservative free - preservative free - ML ML influenza, influenza, 2017-09-13 Completed [place] injectable, injectable, 00:00:00 [facility] quadrivalent, Out[facility] Program preservative free - preservative free - ML ML influenza, influenza, 2017-09-13 Completed [place] injectable, injectable, 00:00:00 [facility] quadrivalent, Out[facility] Program preservative free - preservative free - ML ML influenza, influenza, 2017-09-13 Completed [place] injectable, injectable, 00:00:00 [facility], quadrivalent, Out[facility] Program preservative free - preservative free - ML ML influenza, influenza, 2017-09-13 Completed [place] injectable, injectable, 00:00:00 [facility] quadrivalent, Out[facility] Program preservative free - preservative free - ML ML influenza, influenza, 2017-09-13 Completed [place] injectable, injectable, 00:00:00 [facility], quadrivalent, Out[facility] Program preservative free - preservative free - ML ML influenza, influenza, 2017-09-13 Completed [place] injectable, injectable, 00:00:00 [facility] quadrivalent, [facility] Program preservative free - preservative free - ML ML influenza, influenza, 2017-08-10 Completed [place] injectable, injectable, 00:00:00 [facility] - ML quadrivalent - ML Outreach Program influenza, influenza, 2017-08-10 Completed [place] injectable, injectable, 00:00:00 [facility] - ML quadrivalent - ML Outreach Program influenza, influenza, 2017-08-10 Completed [place] injectable, injectable, 00:00:00 [facility] - ML quadrivalent - ML Outreach Program influenza, influenza, 2017-08-10 Completed [place] injectable, injectable, 00:00:00 [facility] - ML quadrivalent - ML Outreach Program influenza, influenza, 2017-08-10 Completed [place] injectable, injectable, 00:00:00 [facility]alent - ML quadrivalent - ML Outreach Program influenza, influenza, 2017-08-10 Completed [place] injectable, injectable, 00:00:00 [facility] - ML quadrivalent - ML Outreach Program influenza, influenza, 2017-08-10 Completed [place] injectable, injectable, 00:00:00 [facility] - ML quadrivalent - ML Outreach Program meningococcal MCV4P meningococcal MCV4P 2014-02-02 Completed [place] - ML - ML 00:00:00 [facility] Tdap - ML Tdap - ML 2014-02-02 Completed [place] 00:00:[facility] meningococcal MCV4P meningococcal MCV4P 2014-02-02 Completed [place] - ML - ML 00:00:00 [facility] Tdap - ML Tdap - ML 2014-02-02 Completed [place] 00:00:00 [facility] meningococcal MCV4P meningococcal MCV4P 2014-02-02 Completed [place] - ML - ML 00:00:00 [facility] Tdap - ML Tdap - ML 2014-02-02 Completed [place] 00:00:00 [facility] meningococcal MCV4P meningococcal MCV4P 2014-02-02 Completed [place] - ML - ML 00:00:00 [facility] meningococcal MCV4P meningococcal MCV4P 2014-02-02 Completed [place] - ML - ML 00:00:00 [facility] Tdap - ML Tdap - ML 2014-02-02 Completed [place] 00:00:[facility] Tdap - ML Tdap - ML 2014-02-02 Completed [place] 00:00:00 [facility] meningococcal MCV4P meningococcal MCV4P 2014-02-02 Completed [place] - ML - ML 00:00:00 [facility] Tdap - ML Tdap - ML 2014-02-02 Completed [place] 00:00:00 [facility] meningococcal MCV4P meningococcal MCV4P 2014-02-02 Completed [place] - ML - ML 00:00:00 [facility] am Tdap - ML Tdap - ML 2014-02-02 Completed [place] 00:00:00 [facility] Out[facility] Progr am Influenza Virus 2010-04-07 Completed [facility] Vaccine 00:00:00 [facility] Influenza Virus 2010-04-07 Completed [facility] Vaccine 00:00:00 [facility] Influenza Virus 2010-04-07 Completed [facility] Vaccine 00:00:00 [facility] Influenza Virus 2010-04-07 Completed [facility] Vaccine 00:00:00 [facility] influenza, seasonal, influenza, seasonal, 2010-04-07 Completed [place] injectable - ML injectable - ML 00:00:00 [facility] influenza, seasonal, influenza, seasonal, 2010-04-07 Completed [place] injectable - ML injectable - ML 00:00:00 [facility] influenza, seasonal, influenza, seasonal, 2010-04-07 Completed [place] injectable - ML injectable - ML 00:00:00 [facility] influenza, seasonal, influenza, seasonal, 2010-04-07 Completed [place] injectable - ML injectable - ML 00:00:00 [facility] influenza, seasonal, influenza, seasonal, 2010-04-07 Completed [place] injectable - ML injectable - ML 00:00:00 [facility] influenza, seasonal, influenza, seasonal, 2010-04-07 Completed [place] injectable - ML injectable - ML 00:00:00 [facility] influenza, seasonal, influenza, seasonal, 2010-04-07 Completed [place] injectable - ML injectable - ML 00:00:00 [facility] Influenza Virus 2009-04-12 Completed [facility] Vaccine 00[facility]00:00 [facility] Influenza Virus 2009-04-12 Completed [facility] Vaccine 00:00:00 [facility] Influenza Virus 2009-04-12 Completed [facility] Vaccine 00:00:00 [facility] Influenza Virus 2009-04-12 Completed [facility] Vaccine 00:00:00 [facility] influenza, seasonal, influenza, seasonal, 2009-04-12 Completed [place] injectable - ML injectable - ML 00:00:00 [facility] influenza, seasonal, influenza, seasonal, 2009-04-12 Completed [place] injectable - ML injectable - ML 00:00:00 [facility] influenza, seasonal, influenza, seasonal, 2009-04-12 Completed [place] injectable - ML injectable - ML 00:00:00 [facility] influenza, seasonal, influenza, seasonal, 2009-04-12 Completed [place] injectable - ML injectable - ML 00:00:00 [facility] influenza, seasonal, influenza, seasonal, 2009-04-12 Completed [place] injectable - ML injectable - ML 00:00:00 [facility] influenza, seasonal, influenza, seasonal, 2009-04-12 Completed [place] injectable - ML injectable - ML 00:00:00 [facility] influenza, seasonal, influenza, seasonal, 2009-04-12 Completed [place] injectable - ML injectable - ML 00:00:00 [facility] Influenza Virus 2008-05-01 Completed [facility] Vaccine 00:00:00 [facility] Influenza Virus 2008-05-01 Completed [facility] Vaccine 00:00:00 [facility] Influenza Virus 2008-05-01 Completed [facility] Vaccine 00:00:00 [facility] Influenza Virus 2008-05-01 Completed [facility] Vaccine 00:00:00 [facility] influenza, seasonal, influenza, seasonal, 2008-05-01 Completed [place] injectable - ML injectable - ML 00:00:00 [facility] influenza, seasonal, influenza, seasonal, 2008-05-01 Completed [place] injectable - ML injectable - ML 00:00:00 [facility] influenza, seasonal, influenza, seasonal, 2008-05-01 Completed [place] injectable - ML injectable - ML 00:00:00 [facility] influenza, seasonal, influenza, seasonal, 2008-05-01 Completed [place] injectable - ML injectable - ML 00:00:00 [facility] influenza, seasonal, influenza, seasonal, 2008-05-01 Completed [place] injectable - ML injectable - ML 00:00:00 [facility] influenza, seasonal, influenza, seasonal, 2008-05-01 Completed [place] injectable - ML injectable - ML 00:00:00 [facility] influenza, seasonal, influenza, seasonal, 2008-05-01 Completed [place] injectable - ML injectable - ML 00:00:00 [facility] Influenza Virus 2008-03-27 Completed [facility] Vaccine 00:00:00 [facility] Influenza Virus 2008-03-27 Completed [facility] Vaccine 00:00:00 [facility] Influenza Virus 2008-03-27 Completed [facility] Vaccine 00:00:00 [facility] Influenza Virus 2008-03-27 Completed [facility] Vaccine 00:00:00 [facility] influenza, seasonal, influenza, seasonal, 2008-03-27 Completed [place] injectable - ML injectable - ML 00:00:00 [facility] influenza, seasonal, influenza, seasonal, 2008-03-27 Completed [place] injectable - ML injectable - ML 00:00:00 [facility] influenza, seasonal, influenza, seasonal, 2008-03-27 Completed [place] injectable - ML injectable - ML 00:00:00 [facility] influenza, seasonal, influenza, seasonal, 2008-03-27 Completed [place] injectable - ML injectable - ML 00:00:00 [facility] influenza, seasonal, influenza, seasonal, 2008-03-27 Completed [place] injectable - ML injectable - ML 00:00:00 [facility] influenza, seasonal, influenza, seasonal, 2008-03-27 Completed [place] injectable - ML injectable - ML 00:00:00 [facility] influenza, seasonal, influenza, seasonal, 2008-03-27 Completed [place] injectable - ML injectable - ML 00:00:00 [facility] HEPATITIS A 2006-10-04 Completed [facility] 00:00:00 [facility] Polio (IPV/OPV) 2006-10-04 Completed [facility] 00:00:00 [facility] DTAP 2006-10-04 Completed [facility] 00:00:00 [facility] Proquad 2006-10-04 Completed University (MMR/VARICELLA) 00:00:[address] [facility] [place], [place] HEPATITIS A 2006-10-04 Completed [facility] 00:00:00 [facility] Polio (IPV/OPV) 2006-10-04 Completed [facility] 00:00:00 [facility] DTAP 2006-10-04 Completed [facility] 00:00:00 [facility] Proquad 2006-10-04 Completed [facility] (MMR/VARICELLA) 00:00:[address] [facility] [place], [place] HEPATITIS A 2006-10-04 Completed [facility] 00:00:00 [facility] Polio (IPV/OPV) 2006-10-04 Completed [facility] 00:00:00 [facility] DTAP 2006-10-04 Completed [facility] 00:00:00 [facility] Proquad 2006-10-04 Completed [facility] (MMR/VARICELLA) 00:00:[address] [facility] [place] [place] HEPATITIS A 2006-10-04 Completed [facility] 00:00:00 [facility] Polio (IPV/OPV) 2006-10-04 Completed [facility] 00:00:00 [facility] DTAP 2006-10-04 Completed [facility] 00:00:00 [facility] Proquad 2006-10-04 Completed [facility] (MMR/VARICELLA) 00:00:[address] [facility] [place] [place] Hep A, unspecified Hep A, unspecified 2006-10-04 Completed [facility] formulation - ML formulation - ML 00:00:00 [facility] DTaP, unspecified DTaP, unspecified 2006-10-04 Completed [place] formulation - ML formulation - ML 00:00:00 [facility] Hep A, ped/adol, 2 Hep A, ped/adol, 2 2006-10-04 Completed [place] dose - ML dose - ML 00:00:00 [facility] MMRV - ML MMRV - ML 2006-10-04 Completed [place] 00:00:00 [facility] IPV - ML IPV - ML 2006-10-04 Completed [place] 00[facility]00:00 [facility] Hep A, unspecified Hep A, unspecified 2006-10-04 Completed [place] formulation - ML formulation - ML 00:00:00 [facility] DTaP, unspecified DTaP, unspecified 2006-10-04 Completed [place] formulation - ML formulation - ML 00:00:00 [facility] Hep A, ped/adol, 2 Hep A, ped/adol, 2 2006-10-04 Completed [place] dose - ML dose - ML 00:00:00 [facility] MMRV - ML MMRV - ML 2006-10-04 Completed [place] 00:00:00 [facility] IPV - ML IPV - ML 2006-10-04 Completed [place] 00:00:00 [facility] Hep A, unspecified Hep A, unspecified 2006-10-04 Completed [place] formulation - ML formulation - ML 00:00:00 [facility] DTaP, unspecified DTaP, unspecified 2006-10-04 Completed [place] formulation - ML formulation - ML 00:00:00 [facility] Hep A, ped/adol, 2 Hep A, ped/adol, 2 2006-10-04 Completed [place] dose - ML dose - ML 00:00:00 [facility] MMRV - ML MMRV - ML 2006-10-04 Completed [place] 00:00:00 [facility] IPV - ML IPV - ML 2006-10-04 Completed [place] 00:00:00 [facility] Hep A, unspecified Hep A, unspecified 2006-10-04 Completed [place] formulation - ML formulation - ML 00:00:00 [facility] DTaP, unspecified DTaP, unspecified 2006-10-04 Completed [place] formulation - ML formulation - ML 00:00:00 [facility] Hep A, ped/adol, 2 Hep A, ped/adol, 2 2006-10-04 Completed [place] dose - ML dose - ML 00:00:00 [facility] MMRV - ML MMRV - ML 2006-10-04 Completed [place] 00:00:00 [facility] IPV - ML IPV - ML 2006-10-04 Completed [place] 00:00:00 [facility] Hep A, unspecified Hep A, unspecified 2006-10-04 Completed [place] formulation - ML formulation - ML 00:00:00 [facility] DTaP, unspecified DTaP, unspecified 2006-10-04 Completed [place] formulation - ML formulation - ML 00:00:00 [facility] Hep A, ped/adol, 2 Hep A, ped/adol, 2 2006-10-04 Completed [place] dose - ML dose - ML 00:00:00 [facility] MMRV - ML MMRV - ML 2006-10-04 Completed [place] 00:00:00 [facility] Hep A, unspecified Hep A, unspecified 2006-10-04 Completed [place] formulation - ML formulation - ML 00:00:00 [facility] DTaP, unspecified DTaP, unspecified 2006-10-04 Completed [place] formulation - ML formulation - ML 00:00:00 [facility] Hep A, ped/adol, 2 Hep A, ped/adol, 2 2006-10-04 Completed [place] dose - ML dose - ML 00:00:00 [facility] MMRV - ML MMRV - ML 2006-10-04 Completed [place] 00:00:00 [facility] IPV - ML IPV - ML 2006-10-04 Completed [place] 00:00:00 [facility] IPV - ML IPV - ML 2006-10-04 Completed [place] 00:00:00 [facility] Hep A, unspecified Hep A, unspecified 2006-10-04 Completed [place] formulation - ML formulation - ML 00:00:00 [facility] DTaP, unspecified DTaP, unspecified 2006-10-04 Completed [place] formulation - ML formulation - ML 00:00:00 [facility] Hep A, ped/adol, 2 Hep A, ped/adol, 2 2006-10-04 Completed [place] dose - ML dose - ML 00:00:00 [facility] MMRV - ML MMRV - ML 2006-10-04 Completed [place] 00:00:00 [facility] IPV - ML IPV - ML 2006-10-04 Completed [place] 00:00:00 [facility] HEPATITIS A 2005-09-02 Completed [facility] 00:00:00 [facility] HEPATITIS A 2005-09-02 Completed [facility] 00:00:00 [facility] HEPATITIS A 2005-09-02 Completed University 00:00:00 [facility] HEPATITIS A 2005-09-02 Completed [facility] 00:00:00 [facility] Hep A, unspecified Hep A, unspecified 2005-09-02 Completed [place] formulation - ML formulation - ML 00:00:[address] [facility] Hep A, ped/adol, 2 Hep A, ped/adol, 2 2005-09-02 Completed [place] dose - ML dose - ML 00:00:00 [facility] Hep A, unspecified Hep A, unspecified 2005-09-02 Completed [place] formulation - ML formulation - ML 00:00:00 [facility] Hep A, ped/adol, 2 Hep A, ped/adol, 2 2005-09-02 Completed [place] dose - ML dose - ML 00:00:00 [facility] Hep A, unspecified Hep A, unspecified 2005-09-02 Completed [place] formulation - ML formulation - ML 00:00:[address] [facility] Hep A, ped/adol, 2 Hep A, ped/adol, 2 2005-09-02 Completed [place] dose - ML dose - ML 00:00:00 [facility] Hep A, unspecified Hep A, unspecified 2005-09-02 Completed [place] formulation - ML formulation - ML 00:00:00 [facility] Hep A, ped/adol, 2 Hep A, ped/adol, 2 2005-09-02 Completed [place] dose - ML dose - ML 00:00:00 [facility] Hep A, unspecified Hep A, unspecified 2005-09-02 Completed [place] formulation - ML formulation - ML 00:00:00 [facility] Hep A, ped/adol, 2 Hep A, ped/adol, 2 2005-09-02 Completed [place] dose - ML dose - ML 00:00:00 [facility] Hep A, unspecified Hep A, unspecified 2005-09-02 Completed [place] formulation - ML formulation - ML 00:00:00 [facility] Hep A, ped/adol, 2 Hep A, ped/adol, 2 2005-09-02 Completed [place] dose - ML dose - ML 00:00:00 [facility] Hep A, unspecified Hep A, unspecified 2005-09-02 Completed [place] formulation - ML formulation - ML 00:00:00 [facility] Hep A, ped/adol, 2 Hep A, ped/adol, 2 2005-09-02 Completed [place] dose - ML dose - ML 00:00:00 [facility] Pneumococcal 7 2004-09-17 Completed [facility] Conjugate, PCV7 00:00:00 [place] [facility] Pneumococcal 7 2004-09-17 Completed [facility] Conjugate, PCV7 00:00:00 [place] [facility] Pneumococcal 7 2004-09-17 Completed [facility] Conjugate, PCV7 00:00:00 [place] [facility] Pneumococcal 7 2004-09-17 Completed [facility] Conjugate, PCV7 00:00:00 [place] [facility] pneumococcal pneumococcal 2004-09-17 Completed [place] conjugate PCV 7 - ML conjugate PCV 7 - ML 00:00:00 [facility] pneumococcal pneumococcal 2004-09-17 Completed [place] conjugate PCV 7 - ML conjugate PCV 7 - ML 00:00:00 [facility] pneumococcal pneumococcal 2004-09-17 Completed [place] conjugate PCV 7 - ML conjugate PCV 7 - ML 00:00:00 [facility] pneumococcal pneumococcal 2004-09-17 Completed [place] conjugate PCV 7 - ML conjugate PCV 7 - ML 00:00:00 [facility] pneumococcal pneumococcal 2004-09-17 Completed [place] conjugate PCV 7 - ML conjugate PCV 7 - ML 00:00:00 [facility] pneumococcal pneumococcal 2004-09-17 Completed [place] conjugate PCV 7 - ML conjugate PCV 7 - ML 00:00:00 [facility] pneumococcal pneumococcal 2004-09-17 Completed [place] conjugate PCV 7 - ML conjugate PCV 7 - ML 00:00:00 [facility] DTAP 2003-11-19 Completed [facility] 00:00:00 [facility] DTAP 2003-11-19 Completed [facility] 00:00:00 [facility] DTAP 2003-11-19 Completed [facility] 00:00:00 [facility] DTAP 2003-11-19 Completed [facility] 00:00:00 [facility] DTaP - ML DTaP - ML 2003-11-19 Completed [place] 00:00:00 [facility] DTaP - ML DTaP - ML 2003-11-19 Completed [place] 00:00:00 [facility] DTaP - ML DTaP - ML 2003-11-19 Completed [place] 00:00:00 [facility] DTaP - ML DTaP - ML 2003-11-19 Completed [place] 00:00:00 [facility] DTaP - ML DTaP - ML 2003-11-19 Completed [place] 00:00:00 [facility] DTaP - ML DTaP - ML 2003-11-19 Completed [place] 00:00:00 [facility] DTaP - ML DTaP - ML 2003-11-19 Completed [place] 00:00:00 [facility] HIB 4 Dose Schedule 2003-08-21 Completed [facility] 00:00:00 [facility] MMR 2003-08-21 Completed [facility] 00:00:00 [facility] Varicella 2003-08-21 Completed [facility] (varivax)(chicken 00:00:00 [place] [facility] HIB 4 Dose Schedule 2003-08-21 Completed [facility] 00:00:00 [facility] MMR 2003-08-21 Completed [facility] 00:00:00 [facility] Varicella 2003-08-21 Completed [facility] (varivax)(chicken 00:00:00 [place] [facility] pox[facility] HIB 4 Dose Schedule 2003-08-21 Completed [facility] 00:00:00 [facility] MMR 2003-08-21 Completed University 00:00:00 [facility] Varicella 2003-08-21 Completed [facility] (varivax)(chicken 00:00:00 [facility] edical pox) Branch HIB 4 Dose Schedule 2003-08-21 Completed [facility] of 00:00:00 [facility] MMR 2003-08-21 Completed University 00:00:00 [facility] Varicella 2003-08-21 Completed [facility] (varivax)(chicken 00:00:00 [place] [facility] pox[facility] Hib (PRP-T) - ML Hib (PRP-T) - ML 2003-08-21 Completed [place] 00:[facility] varicella - ML varicella - ML 2003-08-21 Completed [place] [employer] 00:00:00 [facility] MMR - ML MMR - ML 2003-08-21 Completed [place] 00:00:00 [facility] Hib (PRP-T) - ML Hib (PRP-T) - ML 2003-08-21 Completed [place] 00:00:00 [facility] varicella - ML varicella - ML 2003-08-21 Completed [place] [facility] 00:00:00 [facility] MMR - ML MMR - ML 2003-08-21 Completed [place] 00:00:00 [facility] Hib (PRP-T) - ML Hib (PRP-T) - ML 2003-08-21 Completed [place] 00:00:00 [facility] varicella - ML varicella - ML 2003-08-21 Completed [place] [facility] 00:00:00 [facility] MMR - ML MMR - ML 2003-08-21 Completed [place] 00:00:00 [facility] Hib (PRP-T) - ML Hib (PRP-T) - ML 2003-08-21 Completed [place] 00:00:00 [facility] varicella - ML varicella - ML 2003-08-21 Completed [place] [facility] 00:00:00 [facility] MMR - ML MMR - ML 2003-08-21 Completed [place] 00:00:00 [facility] Hib (PRP-T) - ML Hib (PRP-T) - ML 2003-08-21 Completed [place] 00:00:00 [facility] varicella - ML varicella - ML 2003-08-21 Completed [place] [facility] 00:00:00 [facility] MMR - ML MMR - ML 2003-08-21 Completed [place] 00:00:00 [facility] Hib (PRP-T) - ML Hib (PRP-T) - ML 2003-08-21 Completed [place] 00:00:00 [facility] varicella - ML varicella - ML 2003-08-21 Completed [place] [facility] 00:00:00 [facility] MMR - ML MMR - ML 2003-08-21 Completed [place] 00:00:00 [facility] Hib (PRP-T) - ML Hib (PRP-T) - ML 2003-08-21 Completed [place] 00:00:00 [facility] varicella - ML varicella - ML 2003-08-21 Completed [place] [facility] 00:00:00 [facility] MMR - ML MMR - ML 2003-08-21 Completed [place] 00:00:00 [facility] influenza, seasonal, influenza, seasonal, 2003-06-08 Completed [place] injectable, injectable, 00:00:00 [facility] preservative free - preservative free - Outreach [facility] ML ML influenza, seasonal, influenza, seasonal, 2003-06-08 Completed [place] injectable - ML injectable - ML 00:00:00 [facility] influenza, seasonal, influenza, seasonal, 2003-06-08 Completed [place] injectable, injectable, 00:00:00 [facility] preservative free - preservative free - Outreach [facility] ML ML influenza, seasonal, influenza, seasonal, 2003-06-08 Completed [place] injectable - ML injectable - ML 00:00:00 [facility] influenza, seasonal, influenza, seasonal, 2003-06-08 Completed [place] injectable, injectable, 00:00:00 [facility] preservative free - preservative free - Outreach [facility] ML ML influenza, seasonal, influenza, seasonal, 2003-06-08 Completed [place] injectable - ML injectable - ML 00:00:00 [facility] influenza, seasonal, influenza, seasonal, 2003-06-08 Completed [place] injectable, injectable, 00:00:00 [facility] preservative free - preservative free - Outreach Program ML ML influenza, seasonal, influenza, seasonal, 2003-06-08 Completed [place] injectable - ML injectable - ML 00:00:00 [facility] influenza, seasonal, influenza, seasonal, 2003-06-08 Completed [place] injectable, injectable, 00:00:00 [facility] preservative free - preservative free - Outreach [facility] ML ML influenza, seasonal, influenza, seasonal, 2003-06-08 Completed [place] injectable - ML injectable - ML 00:00:00 [facility] influenza, seasonal, influenza, seasonal, 2003-06-08 Completed [place] injectable, injectable, 00:00:00 [facility] preservative free - preservative free - Out[facility] ML ML influenza, seasonal, influenza, seasonal, 2003-06-08 Completed [place] injectable - ML injectable - ML 00:00:00 [facility] influenza, seasonal, influenza, seasonal, 2003-06-08 Completed [place] injectable, injectable, 00:00:00 [facility] preservative free - preservative free - Outreach Program ML ML influenza, seasonal, influenza, seasonal, 2003-06-08 Completed [place] injectable - ML injectable - ML 00:00:00 [facility] Hep B, Adol or Pedi 2003-05-18 Completed [facility] Dosage 00:00:00 [facility] Hep B, Adol or Pedi 2003-05-18 Completed [facility] Dosage 00:00:00 [facility] Hep B, Adol or Pedi 2003-05-18 Completed [facility] Dosage 00:00:00 [facility] Hep B, Adol or Pedi 2003-05-18 Completed [facility] Dosage 00:00:00 [facility] Hep B, adolescent or Hep B, adolescent or 2003-05-18 Completed [place] pediatric - ML pediatric - ML 00:00:00 [facility] influenza, seasonal, influenza, seasonal, 2003-05-18 Completed [place] injectable, injectable, 00:00:00 [facility] preservative free - preservative free - Outreach Program ML ML influenza, seasonal, influenza, seasonal, 2003-05-18 Completed [place] injectable - ML injectable - ML 00:00:00 [facility] Hep B, unspecified Hep B, unspecified 2003-05-18 Completed [place] formulation - ML formulation - ML 00:00:00 [facility] Hep B, adolescent or Hep B, adolescent or 2003-05-18 Completed [place] pediatric - ML pediatric - ML 00:00:00 [facility] influenza, seasonal, influenza, seasonal, 2003-05-18 Completed [place] injectable, injectable, 00:00:00 [facility] preservative free - preservative free - Outreach Program ML ML influenza, seasonal, influenza, seasonal, 2003-05-18 Completed [place] injectable - ML injectable - ML 00:00:00 [facility] Hep B, unspecified Hep B, unspecified 2003-05-18 Completed [place] formulation - ML formulation - ML 00:00:00 [facility] Hep B, adolescent or Hep B, adolescent or 2003-05-18 Completed [place] pediatric - ML pediatric - ML 00:00:00 [facility] influenza, seasonal, influenza, seasonal, 2003-05-18 Completed [place] injectable, injectable, 00:00:00 [facility] preservative free - preservative free - Outreach [facility] ML ML influenza, seasonal, influenza, seasonal, 2003-05-18 Completed [place] injectable - ML injectable - ML 00:00:00 [facility] Hep B, unspecified Hep B, unspecified 2003-05-18 Completed [place] formulation - ML formulation - ML 00:00:00 [facility] Hep B, adolescent or Hep B, adolescent or 2003-05-18 Completed [place] pediatric - ML pediatric - ML 00:00:00 [facility] influenza, seasonal, influenza, seasonal, 2003-05-18 Completed [place] injectable, injectable, 00:00:00 [facility] preservative free - preservative free - Outreach [facility] ML ML influenza, seasonal, influenza, seasonal, 2003-05-18 Completed [place] injectable - ML injectable - ML 00:00:00 [facility] Hep B, unspecified Hep B, unspecified 2003-05-18 Completed [place] formulation - ML formulation - ML 00:00:00 [facility] Hep B, adolescent or Hep B, adolescent or 2003-05-18 Completed [place] pediatric - ML pediatric - ML 00:00:00 [facility] influenza, seasonal, influenza, seasonal, 2003-05-18 Completed [place] injectable, injectable, 00:00:00 [facility] preservative free - preservative free - Outreach Program ML ML influenza, seasonal, influenza, seasonal, 2003-05-18 Completed [place] injectable - ML injectable - ML 00:00:00 [facility] Hep B, unspecified Hep B, unspecified 2003-05-18 Completed [place] formulation - ML formulation - ML 00:00:00 [facility] Hep B, adolescent or Hep B, adolescent or 2003-05-18 Completed [place] pediatric - ML pediatric - ML 00:00:00 [facility] influenza, seasonal, influenza, seasonal, 2003-05-18 Completed [place] injectable, injectable, 00:00:00 [facility] preservative free - preservative free - Outreach [facility] ML ML influenza, seasonal, influenza, seasonal, 2003-05-18 Completed [place] injectable - ML injectable - ML 00:00:00 [facility] Hep B, unspecified Hep B, unspecified 2003-05-18 Completed [place] formulation - ML formulation - ML 00:00:00 [facility] Hep B, adolescent or Hep B, adolescent or 2003-05-18 Completed [place] pediatric - ML pediatric - ML 00:00:00 [facility] influenza, seasonal, influenza, seasonal, 2003-05-18 Completed [place] injectable, injectable, 00:00:00 [facility] preservative free - preservative free - Outreach Program ML ML influenza, seasonal, influenza, seasonal, 2003-05-18 Completed [place] injectable - ML injectable - ML 00:00:00 [facility] Hep B, unspecified Hep B, unspecified 2003-05-18 Completed [place] formulation - ML formulation - ML 00:00:00 [facility] Progr am influenza, seasonal, influenza, seasonal, 2003-04-16 Completed [place] injectable, injectable, 00:00:00 [facility] preservative free - preservative free - Outreach Program ML ML influenza, seasonal, influenza, seasonal, 2003-04-16 Completed [place] injectable - ML injectable - ML 00:00:00 [facility] influenza, seasonal, influenza, seasonal, 2003-04-16 Completed [place] injectable, injectable, 00:00:00 [facility] preservative free - preservative free - Outreach Program ML ML influenza, seasonal, influenza, seasonal, 2003-04-16 Completed [place] injectable - ML injectable - ML 00:00:00 [facility] influenza, seasonal, influenza, seasonal, 2003-04-16 Completed [place] injectable, injectable, 00:00:00 [facility] preservative free - preservative free - Outreach Program ML ML influenza, seasonal, influenza, seasonal, 2003-04-16 Completed [place] injectable - ML injectable - ML 00:00:00 [facility] influenza, seasonal, influenza, seasonal, 2003-04-16 Completed [place] injectable, injectable, 00:00:00 [facility] preservative free - preservative free - Outreach Program ML ML influenza, seasonal, influenza, seasonal, 2003-04-16 Completed [place] injectable - ML injectable - ML 00:00:00 [facility] influenza, seasonal, influenza, seasonal, 2003-04-16 Completed [place] injectable, injectable, 00:00:00 [facility] preservative free - preservative free - Outreach Program ML ML influenza, seasonal, influenza, seasonal, 2003-04-16 Completed [place] injectable - ML injectable - ML 00:00:00 [facility] influenza, seasonal, influenza, seasonal, 2003-04-16 Completed [place] injectable, injectable, 00:00:00 [facility] preservative free - preservative free - Outreach Program ML ML influenza, seasonal, influenza, seasonal, 2003-04-16 Completed [place] injectable - ML injectable - ML 00:00:00 [facility] influenza, seasonal, influenza, seasonal, 2003-04-16 Completed [place] injectable, injectable, 00:00:00 [facility] preservative free - preservative free - Outreach Program ML ML influenza, seasonal, influenza, seasonal, 2003-04-16 Completed [place] injectable - ML injectable - ML 00:00:00 [facility] DTAP 2003-02-27 Completed [facility] 00:00:00 [facility] HIB 4 Dose Schedule 2003-02-27 Completed [facility] 00:00:00 [facility] Hep B, Adol or Pedi 2003-02-27 Completed [facility] Dosage 00:00:00 [facility] Pneumococcal 7 2003-02-27 Completed [facility] Conjugate, PCV7 00:00:00 [place] [facility] (Prevnar7) Branch Polio (IPV/OPV) 2003-02-27 Completed [facility] 00:00:00 [facility] DTAP 2003-02-27 Completed [facility] 00:00:00 [facility] HIB 4 Dose Schedule 2003-02-27 Completed [facility] 00:00:00 [facility] Hep B, Adol or Pedi 2003-02-27 Completed [facility] Dosage 00:00:00 [facility] Pneumococcal 7 2003-02-27 Completed [facility] Conjugate, PCV7 00:00:00 [place] [facility] (Prevnar7) Branch Polio (IPV/OPV) 2003-02-27 Completed [facility] 00:00:00 [facility] DTAP 2003-02-27 Completed [facility] 00:00:00 [facility] HIB 4 Dose Schedule 2003-02-27 Completed [facility] of 00:00:00 [facility] Hep B, Adol or Pedi 2003-02-27 Completed [facility] Dosage 00:00:00 [facility] Pneumococcal 7 2003-02-27 Completed [facility] Conjugate, PCV7 00:00:00 [facility] (Prevnar7) Branch Polio (IPV/OPV) 2003-02-27 Completed Universit [facility] of 00:00:00 [facility] DTAP 2003-02-27 Completed [facility] 00:00:00 [facility] HIB 4 Dose Schedule 2003-02-27 Completed [facility] of 00:00:00 [facility] Hep B, Adol or Pedi 2003-02-27 Completed [facility] Dosage 00:00:00 [facility] Pneumococcal 7 2003-02-27 Completed University Conjugate, PCV7 00:00:00 [facility] (Prevnar7) [facility] Polio (IPV/OPV) 2003-02-27 Completed [facility] 00:00:00 [facility] DTaP, unspecified DTaP, unspecified 2003-02-27 Completed [place] formulation - ML formulation - ML 00:00:00 [facility] Hib (PRP-T) - ML Hib (PRP-T) - ML 2003-02-27 Completed [place] 00:00:00 [facility] Hep B, adolescent or Hep B, adolescent or 2003-02-27 Completed [place] pediatric - ML pediatric - ML 00:00:00 [facility] pneumococcal pneumococcal 2003-02-27 Completed [place] conjugate PCV 7 - ML conjugate PCV 7 - ML 00:00:00 [facility] IPV - ML IPV - ML 2003-02-27 Completed [place] 00:00:00 [facility] DTaP, unspecified DTaP, unspecified 2003-02-27 Completed [place] formulation - ML formulation - ML 00:00:00 [facility] Hib (PRP-T) - ML Hib (PRP-T) - ML 2003-02-27 Completed [place] 00:00:00 [facility] Hep B, adolescent or Hep B, adolescent or 2003-02-27 Completed [place] pediatric - ML pediatric - ML 00:00:00 [facility] pneumococcal pneumococcal 2003-02-27 Completed [place] conjugate PCV 7 - ML conjugate PCV 7 - ML 00:00:00 [facility] IPV - ML IPV - ML 2003-02-27 Completed [place] 00:00:00 [facility] DTaP, unspecified DTaP, unspecified 2003-02-27 Completed [place] formulation - ML formulation - ML 00:00:00 [facility] Hib (PRP-T) - ML Hib (PRP-T) - ML 2003-02-27 Completed [place] 00:00:00 [facility] Hep B, adolescent or Hep B, adolescent or 2003-02-27 Completed [place] pediatric - ML pediatric - ML 00:00:00 [facility] pneumococcal pneumococcal 2003-02-27 Completed [place] conjugate PCV 7 - ML conjugate PCV 7 - ML 00:00:00 [facility] IPV - ML IPV - ML 2003-02-27 Completed [place] 00:00:00 [facility] DTaP, unspecified DTaP, unspecified 2003-02-27 Completed [place] formulation - ML formulation - ML 00:00:00 [facility] Hib (PRP-T) - ML Hib (PRP-T) - ML 2003-02-27 Completed [place] 00:00:00 [facility] Hep B, adolescent or Hep B, adolescent or 2003-02-27 Completed [place] pediatric - ML pediatric - ML 00:00:00 [facility] pneumococcal pneumococcal 2003-02-27 Completed [place] conjugate PCV 7 - ML conjugate PCV 7 - ML 00:00:00 [facility] IPV - ML IPV - ML 2003-02-27 Completed [place] 00:00:00 [facility] DTaP, unspecified DTaP, unspecified 2003-02-27 Completed [place] formulation - ML formulation - ML 00:00:00 [facility] Hib (PRP-T) - ML Hib (PRP-T) - ML 2003-02-27 Completed [place] 00:00:00 [facility] Hep B, adolescent or Hep B, adolescent or 2003-02-27 Completed [place] pediatric - ML pediatric - ML 00:00:00 [facility] pneumococcal pneumococcal 2003-02-27 Completed [place] conjugate PCV 7 - ML conjugate PCV 7 - ML 00:00:00 [facility] IPV - ML IPV - ML 2003-02-27 Completed [place] 00:00:00 [facility] DTaP, unspecified DTaP, unspecified 2003-02-27 Completed [place] formulation - ML formulation - ML 00:00:00 [facility] Hib (PRP-T) - ML Hib (PRP-T) - ML 2003-02-27 Completed [place] 00:00:00 [facility] Hep B, adolescent or Hep B, adolescent or 2003-02-27 Completed [place] pediatric - ML pediatric - ML 00:00:00 [facility] pneumococcal pneumococcal 2003-02-27 Completed [place] conjugate PCV 7 - ML conjugate PCV 7 - ML 00:00:00 [facility] IPV - ML IPV - ML 2003-02-27 Completed [place] 00[facility]00:00 [facility] DTaP, unspecified DTaP, unspecified 2003-02-27 Completed [place] formulation - ML formulation - ML 00:00:00 [facility] Hib (PRP-T) - ML Hib (PRP-T) - ML 2003-02-27 Completed [place] 00:00:00 [facility] Hep B, adolescent or Hep B, adolescent or 2003-02-27 Completed [place] pediatric - ML pediatric - ML 00:00:00 [facility] pneumococcal pneumococcal 2003-02-27 Completed [place] conjugate PCV 7 - ML conjugate PCV 7 - ML 00:00:00 [facility] IPV - ML IPV - ML 2003-02-27 Completed [place] 00:00:00 [facility] DTAP 2003-01-03 Completed [facility] 00:00:00 [facility] HIB 4 Dose Schedule 2003-01-03 Completed [facility] 00:00:00 [facility] Pneumococcal 7 2003-01-03 Completed [facility] Conjugate, PCV7 00:00:00 [facility] (Prevnar7) Branch Polio (IPV/OPV) 2003-01-03 Completed [facility] 00:00:00 [facility] DTAP 2003-01-03 Completed [facility] 00:00:00 [facility] HIB 4 Dose Schedule 2003-01-03 Completed [facility] of 00:00:00 [facility] Pneumococcal 7 2003-01-03 Completed [facility] Conjugate, PCV7 00:00:00 [facility] ical (Prevnar7) Branch Polio (IPV/OPV) 2003-01-03 Completed [facility] 00:00:00 [facility] DTAP 2003-01-03 Completed [facility] 00:00:00 [facility] HIB 4 Dose Schedule 2003-01-03 Completed [facility] of 00:00:00 [facility] Pneumococcal 7 2003-01-03 Completed [facility] Conjugate, PCV7 00:00:00 [facility] ica (Prevnar7) [place] Polio (IPV/OPV) 2003-01-03 Completed [facility] 00:00:00 [facility] DTAP 2003-01-03 Completed [facility] 00:00:00 [facility] HIB 4 Dose Schedule 2003-01-03 Completed [facility] of 00:00:00 [facility] Pneumococcal 7 2003-01-03 Completed [facility] Conjugate, PCV7 00:00:00 [facility] (Prevnar7) [facility] Polio (IPV/OPV) 2003-01-03 Completed [facility] 00:00:00 [facility] DTaP, unspecified DTaP, unspecified 2003-01-03 Completed [place] formulation - ML formulation - ML 00:00:00 [facility] Hib (PRP-T) - ML Hib (PRP-T) - ML 2003-01-03 Completed [place] 00:00:00 [facility] pneumococcal pneumococcal 2003-01-03 Completed [place] conjugate PCV 7 - ML conjugate PCV 7 - ML 00:00:00 [facility] IPV - ML IPV - ML 2003-01-03 Completed [place] 00:00:00 [facility] DTaP, unspecified DTaP, unspecified 2003-01-03 Completed [place] formulation - ML formulation - ML 00:00:00 [facility] Hib (PRP-T) - ML Hib (PRP-T) - ML 2003-01-03 Completed [place] 00:00:00 [facility] pneumococcal pneumococcal 2003-01-03 Completed [place] conjugate PCV 7 - ML conjugate PCV 7 - ML 00:00:00 [facility] IPV - ML IPV - ML 2003-01-03 Completed [place] 00:00:00 [facility] DTaP, unspecified DTaP, unspecified 2003-01-03 Completed [place] formulation - ML formulation - ML 00:00:00 [facility] Hib (PRP-T) - ML Hib (PRP-T) - ML 2003-01-03 Completed [place] 00:00:00 [facility] pneumococcal pneumococcal 2003-01-03 Completed [place] conjugate PCV 7 - ML conjugate PCV 7 - ML 00:00:00 [facility] IPV - ML IPV - ML 2003-01-03 Completed [place] 00:00:00 [facility] DTaP, unspecified DTaP, unspecified 2003-01-03 Completed [place] formulation - ML formulation - ML 00:00:00 [facility] Hib (PRP-T) - ML Hib (PRP-T) - ML 2003-01-03 Completed [place] 00:00:00 [facility] pneumococcal pneumococcal 2003-01-03 Completed [place] conjugate PCV 7 - ML conjugate PCV 7 - ML 00:00:00 [facility] IPV - ML IPV - ML 2003-01-03 Completed [place] 00:00:00 [facility] DTaP, unspecified DTaP, unspecified 2003-01-03 Completed [place] formulation - ML formulation - ML 00:00:00 [facility] Hib (PRP-T) - ML Hib (PRP-T) - ML 2003-01-03 Completed [place] 00:00:00 [facility] pneumococcal pneumococcal 2003-01-03 Completed [place] conjugate PCV 7 - ML conjugate PCV 7 - ML 00:00:00 [facility] IPV - ML IPV - ML 2003-01-03 Completed [place] 00:00:00 [facility] DTaP, unspecified DTaP, unspecified 2003-01-03 Completed [place] formulation - ML formulation - ML 00:00:00 [facility] Hib (PRP-T) - ML Hib (PRP-T) - ML 2003-01-03 Completed [place] 00:00:00 [facility] pneumococcal pneumococcal 2003-01-03 Completed [place] conjugate PCV 7 - ML conjugate PCV 7 - ML 00:00:00 [facility] IPV - ML IPV - ML 2003-01-03 Completed [place] 00:00:00 [facility] DTaP, unspecified DTaP, unspecified 2003-01-03 Completed [place] formulation - ML formulation - ML 00:00:00 [facility] Hib (PRP-T) - ML Hib (PRP-T) - ML 2003-01-03 Completed [place] 00:00:00 [facility] th Outreach Progr am pneumococcal pneumococcal 2003-01-03 Completed [place] conjugate PCV 7 - ML conjugate PCV 7 - ML 00:00:00 [facility] IPV - ML IPV - ML 2003-01-03 Completed [place] 00:00:00 [facility] Polio (IPV/OPV) 2002 Completed [facility] 00:00:00 [facility] Pneumococcal 7 2002 Completed University of Conjugate, PCV7 00:00:00 [place] [facility] (Prevnar7) [facility] DTAP 2002 Completed University of 00:00:00 [facility] Hep B, Adol or Pedi 2002 Completed Unive rsity of Dosage 00:00:00 [facility] HIB 4 Dose Schedule 2002 Completed Unive rsity of 00:00:00 [facility] Polio (IPV/OPV) 2002 Completed Universit [facility] of 00:00:00 [facility] Pneumococcal 7 2002 Completed University of Conjugate, PCV7 00:00:00 [place] [facility] (Prevnar7) [facility] DTAP 2002 Completed University of 00:00:00 [facility] Hep B, Adol or Pedi 2002 Completed Unive rsity of Dosage 00:00:00 [facility] HIB 4 Dose Schedule 2002 Completed Unive rsity of 00:00:00 [facility] Polio (IPV/OPV) 2002 Completed Universit y of 00:00:00 [facility] Pneumococcal 7 2002 Completed University of Conjugate, PCV7 00:00:00 [place] [facility] (Prevnar7) [facility] DTAP 2002 Completed University of 00:00:00 [facility] Hep B, Adol or Pedi 2002 Completed Unive rsity of Dosage 00:00:00 [facility] HIB 4 Dose Schedule 2002 Completed Unive rsity of 00:00:00 [facility] Polio (IPV/OPV) 2002 Completed Universit y of 00:00:00 [facility] Pneumococcal 7 2002 Completed University of Conjugate, PCV7 00:00:00 [place] [facility] (Prevnar7) [facility] DTAP 2002 Completed University of 00:00:00 [facility] Hep B, Adol or Pedi 2002 Completed Unive rsity of Dosage 00:00:00 [facility] HIB 4 Dose Schedule 2002 Completed Unive rsity of 00:00:00 [facility] DTaP - ML DTaP - ML 2002 Completed [place] 00:00:00 [facility] Hep B, adolescent or Hep B, adolescent or 2002 Completed [place] pediatric - ML pediatric - ML 00:00:00 [facility] DTaP - ML DTaP - ML 2002 Completed [place] 00:00:00 [facility] Hep B, adolescent or Hep B, adolescent or 2002 Completed [place] pediatric - ML pediatric - ML 00:00:00 [facility] DTaP - ML DTaP - ML 2002 Completed [place] 00:00:00 [facility] Hep B, adolescent or Hep B, adolescent or 2002 Completed [place] [facility] - ML pediatric - ML 00:00:00 [facility] DTaP - ML DTaP - ML 2002 Completed [place] 00:00:00 [facility] Hep B, adolescent or Hep B, adolescent or 2002 Completed [place] pediatric - ML pediatric - ML 00:00:00 [facility] DTaP - ML DTaP - ML 2002 Completed [place] 00:00:00 [facility] Hep B, adolescent or Hep B, adolescent or 2002 Completed [place] pediatric - ML pediatric - ML 00:00:00 [facility] DTaP - ML DTaP - ML 2002 Completed [place] 00:00:00 [facility] Hep B, adolescent or Hep B, adolescent or 2002 Completed [place] pediatric - ML pediatric - ML 00:00:00 [facility] DTaP - ML DTaP - ML 2002 Completed [place] 00:00:00 [facility] Hep B, adolescent or Hep B, adolescent or 2002 Completed [place] pediatric - ML pediatric - ML 00:00:00 [facility] Vital Signs Vital Name Observation Time Observation Value Comments Source Systolic blood 2021-12-07 03:50:00 108 mm[Hg] Univer sity of pressure [facility] Diastolic blood 2021-12-07 03:50:00 95 mm[Hg] Unive rsity of [facility] Heart rate 2021-12-07 03:50:00 88 /min [facility] Respiratory rate 2021-12-07 03:50:00 20 /min [facility] Oxygen saturation in 2021-12-07 03:50:00 97 /min [facility] Arterial blood by [facility] Pulse oximetry [place] Body temperature 2021-12-07 02:00:00 37.22 Sofy [facility] Body height 2021-12-06 23:03:00 162.6 cm [facility] Body weight 2021-12-06 23:03:00 82.555 kg [facility] BMI 2021-12-06 23:03:00 31.24 [facility] Body mass index 2021-12-06 23:03:00 96.62 % Unive rsity of (BMI) [Percentile] [facility] Per age and sex Branch Heart rate 2021-12-06 21:34:00 140 /[facility] Systolic blood 2021-12-06 21:25:00 123 mm[Hg] Univer sity of pressure [facility] Diastolic blood 2021-12-06 21:25:00 76 mm[Hg] Unive rsity of pressure [facility] Body temperature 2021-12-06 21:25:00 37.06 Sofy [facility] 2021-12-06 21:25:00 18 /min [facility] Oxygen saturation in 2021-12-06 21:25:00 96 /min [facility] of Arterial blood by [facility] Pulse oximetry Branch Systolic blood 2021-12-06 21:19:00 123 mm[Hg] Univer sity of [facility] Diastolic blood 2021-12-06 21:19:00 76 mm[Hg] Unive rsity of pressure [facility] Heart rate 2021-12-06 21:19:00 126 /min [facility] Body temperature 2021-12-06 21:19:00 37.06 [facility] Respiratory rate 2021-12-06 21:19:00 18 /min [facility] Body weight 2021-12-06 21:19:00 82.555 kg [facility] Oxygen saturation in 2021-12-06 21:19:00 96 /min [facility] Arterial blood by [facility] Pulse oximetry Branch Procedures Procedure Date / Time Performed Performing Clinician Sour e URINALYSIS 2021-12-07 01:01:00 Dena Kevin [facility] EKG-12 LEAD 2021-12-06 23:48:54 Dena Kevin [facility] XR CHEST 2 VW 2021-12-06 23:48:00 Dena Kevin [facility] ASSIGNMENT OF BENEFITS 2021-12-06 23:41:48 Doctor Unassigned, No [facility] COVID-19 (ID NOW RAPID 2021-12-06 23:27:00 Dena Kevin [facility] TESTING) Medical Branch BASIC METABOLIC PANEL 2021-12-06 23:26:00 Dena Kevin [facility] (NA, K, CL, CO2, Medical Branch GLUCOSE, BUN, CREATININE, CA) CBC WITH DIFF 2021-12-06 23:26:00 Dena Kevin [facility] D-DIMER 2021-12-06 23:26:00 Dena Kevin [facility] CONSENT/REFUSAL FOR 2021-12-06 22:59:58 Doctor Unassigned, No [facility] DIAGNOSIS AND [facility] TREATMENT ASSIGNMENT OF BENEFITS 2021-12-06 21:12:24 Doctor Unassigned, No [facility] Plan of Care Planned Activity Planned Date Details Comments Source Diagnostic Test 2022-09-07 lithium, serum [place] [facility] Pending 00:00:00 [code = lithium, Health Outr each serum] Program Diagnostic Test 2022-09-07 valproic acid, [place] [facility] Pending 00:00:00 free + total, Health Outreac h serum [code = Program valproic acid, free + total, serum] Diagnostic Test 2022-09-07 hepatic function [place] [facility] Pending 00:00:00 panel, serum [code [facility] [place] = hepatic function Program panel, serum] Diagnostic Test 2022-09-07 renal function [place] [facility] Pending 00:00:00 panel, serum [code [facility] [place] = renal function Program panel, serum] Diagnostic Test 2022-09-07 TSH + free T4, [place] [facility] Pending 00:00:00 serum [code = TSH Health Out reach + free T4, serum] Program Future Appointment 2023-03-17 Mars Alvarado, [address] [place] [facility] 00:00:00 [place] Program [id number] Encounters Start End Encounter Admission Attending Care Care Encounter Source Date/Time Date/Time Type Type Clinicians Facility Department ID 2023-01-14 2023-01-14 Outpatient CHRISTIANO_NILES [facility] [id number] [place] 00:00:00 00:00:00 H [id number] [facility] 2023-01-14 2023-01-14 Outpatient PATEL_DONNA [facility] 123 [id number] [place] 00:00:00 00:00:00 H 26485 [facility] 2023-01-14 2023-01-14 Outpatient PATEL_DONNA [facility] 123 [id number] [place] 00:00:00 00:00:00 H 37685 [facility] 2023-01-14 2023-01-14 Mars RANGEL [place] - [id number] [place] 00:00:00 00:00:00 MD Christiano: Tommy mata 1700 [facility] [id number] h , Ph. Program (424) --20072023-01-04 2023-01-04 Outpatient PATEL_DONNA [facility] 123 [id number] [place] 00:00:00 00:00:00 H 59829 [facility] 2022-12-31 2022-12-31 Outpatient PATEL_DONNA [facility] 123 [id number] [place] 00:00:00 00:00:00 H 88860 [facility] 2022-12-31 2022-12-31 Mars Nation [place] - [id number] [place] 00:00:00 00:00:00 MD Christiano: Tommy mata 1700 [facility] [id number] h , Ph. Program (123) -20072022-10-30 2022-10-30 Outpatient PATEL_NILES MEHOP ME[facility]OP 123 [id number] [place] 00:00:00 00:00:00 H 33273 [facility] 2022-10-13 2022-10-13 Outpatient PATEL_NILES [facility]OP [facility]OP 123 [id number] [place] 00:00:00 00:00:00 H 07954 [facility] 2022-10-13 2022-10-13 Outpatient PATEL_NILES [facility] 123 [id number] [place] 00:00:00 00:00:00 H 61552 [facility] 2022-10-13 2022-10-13 Outpatient PATEL_NILES [facility]OP [facility] 123 [id number] [place] 00:00:00 00:00:00 H 41353 [facility] 2022-10-13 2022-10-13 Outpatient PATEL_NILES [facility]OP [facility] 123 [id number] [place] 00:00:00 00:00:00 H 05403 [facility] 2022-10-13 2022-10-13 Mars J MEHOP [place] - [id number] [place] 00:00:00 00:00:00 MD Christiano: Tommy mata 1700 [facility] [id number] [facility] , Ph. Program (457) --20072022-10-11 2022-10-11 Outpatient PATEL_AVS MEHOP ME[facility]OP 123 [id number] [place] 00:00:00 00:00:00 H 02731 [facility] 2022-09-30 2022-09-30 Outpatient PATEL_NILES [facility]OP ME[facility]OP 123 [id number] [place] 00:00:00 00:00:00 H 82947 [facility] 2022-09-29 2022-09-29 Outpatient PATEL_NILES [facility] 123 [id number] [place] 00:00:00 00:00:00 H 35297 [facility] 2022-09-29 2022-09-29 Mars Rios [facility] [place] - [id number] [place] 00:00:00 00:00:00 MD Christiano: Tommy mata 1700 Jew [facility] - MEHOP [place] [id number] h , Ph. Program (979) --20072022-09-28 2022-09-28 Outpatient PATEL_DONNA [facility] 123 [id number] [place] 00:00:00 00:00:00 H 39211 [facility] 2022-09-17 2022-09-17 Outpatient PATEL_DONNA [facility] 123 [id number] [place] 00:00:00 00:00:00 H 83213 [facility] 2022-09-17 2022-09-17 Outpatient PATEL_AVS MEHOP ME[facility]OP 123 [id number] [place] 00:00:00 00:00:00 H 36064 [facility] 2022-09-17 2022-09-17 Mars Rios [facility] - [id number] [place] 00:00:00 00:00:00 MD Christiaon: Tommy mata 1700 Jew [facility] - [place] [address] h , Ph. Program (979) --20072022-09-16 2022-09-16 Outpatient PATEL_DONNA MTHOP [facility]HOP 123 [id number] [place] 00:00:00 00:00:00 H 45666 [facility] 2022-09-14 2022-09-14 Outpatient PATEL_DONNA MTHOP [facility] 123 [id number] [place] 00:00:00 00:00:00 H 99267 [facility] 2022-09-11 2022-09-11 Outpatient PATEL_NILES [facility]OP [facility] 123 [id number] [place] 00:00:00 00:00:00 H 22418 [facility] 2022-09-08 2022-09-08 Outpatient PATEL_NILES [facility] 123 [id number] [place] 00:00:00 00:00:00 H 06545 [facility] 2022-09-07 2022-09-07 Outpatient PATEL_DONNA [facility] 123 [id number] [place] 00:00:00 00:00:00 H 44846 [facility] 2022-09-07 2022-09-07 Mars Nation [facility] [place] - [id number] [place] 00:00:00 00:00:00 MD Christiano: Tommy mata 2 [facility] - [facility] Dr, [facility], Health [facility], [place] [address] , Ph. 2022-09-05 2022-09-05 Outpatient PATEL_DONNA [facility] 123 [id number] [place] 00:00:00 00:00:00 H 40485 [facility] 2022-08-28 2022-08-28 Outpatient PATEL_DONNA [facility] 123 [id number] [place] 00:00:00 00:00:00 H 03860 [facility] 2022-08-28 2022-08-28 Outpatient PATEL_DONNA [facility] 123 [id number] [place] 00:00:00 00:00:00 H 27462 [facility] 2022-07-27 2022-07-27 Emergency EM Michael Blount [facility] LA00 [id number] [facility] 18:34:00 20:38:[address] [facility] 2022-07-15 2022-07-15 Emergency [facility] [id number] [facility] 13:05:00 13:05:00 34 2022-07-15 2022-07-15 Emergency Emergency [place], [facility] [id number] [facility] 13:05:00 13:05:00 Lars 34 2021-12-06 2021-12-06 Emergency Candy LOMBARDO [facility] ERT [id number] Univers 18:04:00 22:54:00 MARK adams [facility] 2021-12-06 2021-12-06 Emergency Dena Kevin [facility] [id number] [id number] Univers 18:04:00 22:54:00 [facility] [id number] [place]y [place] [phone] [address] ([facility]) 2021-12-06 2021-12-06 Nurse Nurse, Clementine TILLEY [id number]. [id number] Univers 16:45:00 16:45:00 Visit Unknown, Attending PEDIATRIC [id number]. 10 ity of [place]ido[place] S AND 4.2.7.2.686 [place] ADULT [id number] [address] 2021-12-06 2021-12-06 Urgent GuidoYou lagos JAREK [id number] Univers 16:30:00 16:45:00 Care Unknown, Attending PEDIATRIC [id number]. 10 [place] [id number] [address] 2021-12-06 2021-12-06 Outpatient R GUIDO, [facility] [id number] Univers 16:45:00 16:38:35 YOU ity [facility] 2021-12-06 2021-12-06 Outpatient R UNKNOWN, [facility] [id number] Univers 16:30:00 16:30:00 ATTENDING ity [facility] 2021-12-06 2021-12-06 Orders Doctor CHEN [id number] Univers 00:00:00 00:00:00 Only Unassigned, TIMO [id number] ity of [place] [facility] 4.2.7.2.686 Nam as [phone] [address] Results Test Description Test Time Test Comments Results Result Comments Source Free T4 and TSH panel - Serum or Plasma 2022-09-09 00:00:00 Test Item Value Reference Range Interpretation Comme nts Thyrotropin [Units/volume] in Serum or Plasma by 2.560 uIU/mL 0.450 -4.500 Detection limit <= 0.005 mIU/L (test code = 75838-0) Thyroxine (T4) free [Mass/volume] in Serum or Plasma 0.68 NG/dL 0 .82-1.77 L (test code = 3024-7) [facility] panel - Serum or [id number] 00:00:00 Test Item Value Reference Range Interpretation Comments Glucose [Mass/volume] in 115 mg/dL 70-99 H Serum or Plasma (test code = 2345-7) Urea nitrogen [Mass/volume] 14 mg/dL 6-20 in Serum or Plasma (test code = 3094-0) Creatinine [Mass/volume] in 0.99 mg/dL 0.76-1.27 Serum or Plasma (test code = 2160-0) Glomerular filtration 112 mL/min/1.73 >59 rate/1.73 sq M.predicted [Volume Rate/Area] in Serum, Plasma or Blood by Creatinine-based formula (CKD-EPI 2020) (test code = 50782-3) Urea nitrogen/Creatinine 14 9-20 [Mass Ratio] in Serum or Plasma (test code = 3097-3) Sodium [Moles/volume] in 141 mmol/L 134-144 Serum or Plasma (test code = 2951-2) Potassium [Moles/volume] in 4.3 mmol/L 3.5-5.2 Serum or Plasma (test code = 2823-3) Chloride [Moles/volume] in 104 mmol/L 96-106 Serum or Plasma (test code = 2075-0) Carbon dioxide, total 19 mmol/L 20-29 L [Moles/volume] in Serum or Plasma (test code = 202-9) Calcium [Mass/volume] in 8.9 mg/dL 8.7-10.2 Serum or Plasma (test code = 05123-2) Phosphate [Mass/volume] in 4.5 mg/dL 2.8-4.1 H Serum or Plasma (test code = 2777-1) Albumin [Mass/volume] in 4.3 g/dL 4.1-5.2 Serum or Plasma (test code = 1751-7) [facility] 1999 panel - Serum or [id number] 00:00:00 Test Item Value Reference Range Interpretation Comments Protein [Mass/volume] in Serum or 5.9 g/dL 6.0-8.5 L Plasma (test code = 2885-2) Bilirubin.total [Mass/volume] in 0.2 mg/dL 0.0-1.2 Serum or Plasma (test code = 1974-2) Bilirubin.direct [Mass/volume] in <0.10 0.00-0.40 Serum or Plasma (test code = 1968-7) Alkaline phosphatase [Enzymatic 50 IU/L 51-125 L activity/volume] in Serum or Plasma (test code = 6768-6) Aspartate aminotransferase 58 IU/L 0-40 H [Enzymatic activity/volume] in Serum or Plasma (test code = 1920-8) Alanine aminotransferase [Enzymatic 76 IU/L 0-44 H activity/volume] in Serum or Plasma (test code = 1742-6) [facility] and Valproate panel - Serum or [id number] 00:00:00 Test Item Value Reference Range Interpretation Comments Valproate [Mass/volume] in Serum 69 ug/mL 50-100 or Plasma (test code = 4086-5) Valproate Free [Mass/volume] in 33.5 ug/mL 6.0-22.0 H Serum or Plasma (test code = 4087-3) [facility] [Moles/volume] in Serum or [id number] 00:00:00 Test Item Value Reference Range Interpretation Comments [place] [Moles/volume] in Serum or 0.5 mmol/L 0.5-1.2 Plasma (test code = 48725-4) [facility] ProgramFree T4 and TSH panel - Serum or [id number] 00:00:00 Test Item Value Reference Range Interpretation Comments Thyrotropin [Units/volume] in 2.560 uIU/mL 0.450-4.500 Serum or Plasma by Detection limit <= 0.005 mIU/L (test code = 57910-4) Thyroxine (T4) free 0.68 NG/dL 0.82-1.77 L [Mass/volume] in Serum or Plasma (test code = 3024-7) [facility] 2000 panel - Serum or [id number] 00:00:00 Test Item Value Reference Range Interpretation Comments Glucose [Mass/volume] in 115 mg/dL 70-99 H Serum or Plasma (test code = 2345-7) Urea nitrogen [Mass/volume] 14 mg/dL 6-20 in Serum or Plasma (test code = 3094-0) Creatinine [Mass/volume] in 0.99 mg/dL 0.76-1.27 Serum or Plasma (test code = 2160-0) Glomerular filtration 112 mL/min/1.73 >59 rate/1.73 sq M.predicted [Volume Rate/Area] in Serum, Plasma or Blood by Creatinine-based formula (CKD-EPI 2020) (test code = 42575-3) Urea nitrogen/Creatinine 14 9-20 [Mass Ratio] in Serum or Plasma (test code = 3097-3) Sodium [Moles/volume] in 141 mmol/L 134-144 Serum or Plasma (test code = 2951-2) Potassium [Moles/volume] in 4.3 mmol/L 3.5-5.2 Serum or Plasma (test code = 2823-3) Chloride [Moles/volume] in 104 mmol/L 96-106 Serum or Plasma (test code = 207-0) Carbon dioxide, total 19 mmol/L 20-29 L [Moles/volume] in Serum or Plasma (test code = 2027-9) Calcium [Mass/volume] in 8.9 mg/dL 8.7-10.2 Serum or Plasma (test code = 57373-8) Phosphate [Mass/volume] in 4.5 mg/dL 2.8-4.1 H Serum or Plasma (test code = 2777-1) Albumin [Mass/volume] in 4.3 g/dL 4.1-5.2 Serum or Plasma (test code = 1751-7) [facility] ProgramHepatic function 2000 panel - Serum or [id number] 00:00:00 Test Item Value Reference Range Interpretation Comments Protein [Mass/volume] in Serum or 5.9 g/dL 6.0-8.5 L Plasma (test code = 2885-2) Bilirubin.total [Mass/volume] in 0.2 mg/dL 0.0-1.2 Serum or Plasma (test code = 1974-2) Bilirubin.direct [Mass/volume] in <0.10 0.00-0.40 Serum or Plasma (test code = 1968-7) Alkaline phosphatase [Enzymatic 50 IU/L 51-125 L activity/volume] in Serum or Plasma (test code = 6768-6) Aspartate aminotransferase 58 IU/L 0-40 H [Enzymatic activity/volume] in Serum or Plasma (test code = 1920-8) Alanine aminotransferase [Enzymatic 76 IU/L 0-44 H activity/volume] in Serum or Plasma (test code = 1742-6) [facility] and Valproate panel - Serum or [id number] 00:00:00 Test Item Value Reference Range Interpretation Comments Valproate [Mass/volume] in Serum 69 ug/mL 50-100 or Plasma (test code = 4086-5) Valproate Free [Mass/volume] in 33.5 ug/mL 6.0-22.0 H Serum or Plasma (test code = 4087-3) [facility] [Moles/volume] in Serum or [id number] 00:00:00 Test Item Value Reference Range Interpretation Comments [place] [Moles/volume] in Serum or 0.5 mmol/L 0.5-1.2 Plasma (test code = 59530-9) [facility] ProgramFree T4 and TSH panel - Serum or [id number] 00:00:00 Test Item Value Reference Range Interpretation Comments Thyrotropin [Units/volume] in 2.560 uIU/mL 0.450-4.500 Serum or Plasma by Detection limit <= 0.005 mIU/L (test code = 68436-6) Thyroxine (T4) free 0.68 NG/dL 0.82-1.77 L [Mass/volume] in Serum or Plasma (test code = 3024-7) [facility] 2000 panel - Serum or [id number] 00:00:00 Test Item Value Reference Range Interpretation Comments Glucose [Mass/volume] in 115 mg/dL 70-99 H Serum or Plasma (test code = 2345-7) Urea nitrogen [Mass/volume] 14 mg/dL 6-20 in Serum or Plasma (test code = 3094-0) Creatinine [Mass/volume] in 0.99 mg/dL 0.76-1.27 Serum or Plasma (test code = 2160-0) Glomerular filtration 112 mL/min/1.73 >59 rate/1.73 sq M.predicted [Volume Rate/Area] in Serum, Plasma or Blood by Creatinine-based formula (CKD-EPI 2020) (test code = 92707-1) Urea nitrogen/Creatinine 14 9-20 [Mass Ratio] in Serum or Plasma (test code = 3097-3) Sodium [Moles/volume] in 141 mmol/L 134-144 Serum or Plasma (test code = 2951-2) Potassium [Moles/volume] in 4.3 mmol/L 3.5-5.2 Serum or Plasma (test code = 2823-3) Chloride [Moles/volume] in 104 mmol/L 96-106 Serum or Plasma (test code = 2075-0) Carbon dioxide, total 19 mmol/L 20-29 L [Moles/volume] in Serum or Plasma (test code = 2027-) Calcium [Mass/volume] in 8.9 mg/dL 8.7-10.2 Serum or Plasma (test code = 91073-2) Phosphate [Mass/volume] in 4.5 mg/dL 2.8-4.1 H Serum or Plasma (test code = 2777-1) Albumin [Mass/volume] in 4.3 g/dL 4.1-5.2 Serum or Plasma (test code = 1751-7) [facility] 2000 panel - Serum or [id number] 00:00:00 Test Item Value Reference Range Interpretation Comments Protein [Mass/volume] in Serum or 5.9 g/dL 6.0-8.5 L Plasma (test code = 2885-2) Bilirubin.total [Mass/volume] in 0.2 mg/dL 0.0-1.2 Serum or Plasma (test code = 1974-) Bilirubin.direct [Mass/volume] in <0.10 0.00-0.40 Serum or Plasma (test code = 1967-) Alkaline phosphatase [Enzymatic 50 IU/L 51-125 L activity/volume] in Serum or Plasma (test code = 6768-6) Aspartate aminotransferase 58 IU/L 0-40 H [Enzymatic activity/volume] in Serum or Plasma (test code = 1920-8) Alanine aminotransferase [Enzymatic 76 IU/L 0-44 H activity/volume] in Serum or Plasma (test code = 1742-6) [facility] Outreach ProgramValproate.free and Valproate panel - Serum or [id number] 00:00:00 Test Item Value Reference Range Interpretation Comments Valproate [Mass/volume] in Serum 69 ug/mL 50-100 or Plasma (test code = 4086-5) Valproate Free [Mass/volume] in 33.5 ug/mL 6.0-22.0 H Serum or Plasma (test code = 4087-3) [facility] Outreach ProgramLithium [Moles/volume] in Serum or [id number] 00:00:00 Test Item Value Reference Range Interpretation Comments [place] [Moles/volume] in Serum or 0.5 mmol/L 0.5-1.2 Plasma (test code = 86867-2) [facility] Outreach Program- CT HEAD/BRAIN W/O [id number] 19:36:00[facility] : 2000 Sex: M Name: JOSELYN CISNEROS [facility] [facility] : 2000 Age/S: 21 / M [address] Unit #: [id number] Loc: [place] [address] Phys: Michael Blount DO Acct: [id number] Dis Date: Status: PRE ER PHONE #: [phone] Exam Date: 07/27/20221925 FAX #: Reason: trauma EXAMS: CPT: [id number] CT HEAD/BRAIN W/O CONT 10682 EXAM: - CT HEAD/BRAIN W/O CONT HISTORY: trauma LOCATION: A1 COMPARISON: MRI brain dated 2002 TECHNIQUE: Axial tomograms through the brain were obtained without intravenous contrast. Coronal and sagittal reformatted images are provided. All CT scans are performed using radiation dose reduction technique. Technical factors are evaluated and adjusted to insure appropriate moderation of exposure. Automated dose management technology is applied to adjust the radiation dose to minimize exposure while achieving a diagnostic quality image. FINDINGS: Encephalomalacia is noted in the left temporal lobe. No hypodensity suggesting acute cerebral infarction is identified, however MRI is more sensitive if this diagnosis is clinically suspected. No intracranial hemorrhage or extra-axial col lection is identified. There is no mass or mass effect. The ventricles and basal cisterns are age appropriate. The visualized paranasal sinuses and mastoid air cells are clear. No acute fracture is present. IMPRESSION: 1. No acute intracranial abnormality. 2. 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 at 1934 Reported and signed by: Kita Adler MD CC: Michael Blount DO Technologist:Vianney Mo RT(R)(CT); Ten CTDI: DLP: Trnscb Date/Time: 07/27/2022 (1935) [email or web address] Orig Print D/T: S: 07/27/2022 (1938) PAGE 1 Signed ReportUA, Urinalysis Rflx Cult/[id number] 13:34:00 Test Item Value Reference Range Interpretation Comments Color,Urine (test code = UCOL) Yellow Yellow Clarity,Urine (test code = Clear Clear UCLAR) Ph, Urine (test code = UPH) 7.0 5.0-9.0 N Specific [place],Urine (test 1.020 1.005-1.030 N code = USG) Blood,Urine (test code = UBLD) Negative mg/dL Negative Protein,Urine (test code = Negative mg/dL Negative UPRO) Glucose,Urine (UA) (test code Negative mg/dL Negative = UGLU) Ketones,Urine (test code = Negative mg/dL Negative UKET) Nitrate,Urine (test code = Negative Negative UNIT) Bilirubin,Urine (test code = Negative mg/dL Negative UBIL) Urobilinogen,Urine (test code 1.0 E.U./dL Normal = UURO) Leukocyte Esterase,Urine (test Negative mg/dL Negative code = ULEU) Drug Screen,[id number] 13:34:00 Test Item Value Reference Range Interpretation Comments PCP Phencyclidine Screen,Urine (test Negative Negative code = PCPU) Amphetamine Screen,Urine (test code Negative Negative = AMPU) Methadone Screen,Urine (test code = Negative Negative METHU) Opiate Screen,Urine (test code = Negative Negative UOPIS) Barbituates Screen,Urine (test code Negative Negative = BARBU) Benzodiazepines Screen,Urine (test Positive Negative A code = UBENZS) Cocaine Screen,Urine (test code = Negative Negative UCOCS) Cannabinoid Screen,Urine (test code Negative Negative = UTHCS) Propoxyphene Screen, Urine (test Negative Negative code = UPROP) Complete Blood Count Auto [id number] 13:25:00 Test Item Value Reference Range Interpretation Comments White Blood Count (test code = 8.7 x10 3/uL 4.4-10.5 N WBCT) Red Blood Count (test code = 5.71 x10 6/uL 4.10-5.70 H RBC) Hemoglobin (test code = HGBT) 17.6 g/dL 13.4-17.4 H Hematocrit (test code = HCTT) 51.9 % 38.7-52.0 N Mean Corpuscular Volume (test 90.90 fL 80.00-100.00 N code = MCV) Mean Corpuscular Hemoglobin 30.8 pg 27.0-32.5 N (test code = MCH) Mean Corpuscular HGB Conc 33.90 g/dL 32.00-37.50 N (test code = MCHC) RDW Coefficient of Variation 12.2 % 11.5-14.5 N (test code = RDWCV) Platelet Count (test code = 232.0 x10 3/uL 140.0-440.0 N PLTT) Mean Platelet Volume (test 10.5 fL code = MPV) Immature Granulocytes % (Auto) 0.7 % 0.0-5.0 N (test code = IMMGRAN%) Neutrophils % (Auto) (test 55.0 % 36.0-70.0 N code = NE%) Lymphocytes % (Auto) (test 30.6 % 12.0-44.0 N code = LY%) Monocytes % (Auto) (test code 7.8 % 0.0-11.0 N = MO%) Eosinophils % (Auto) (test 5.3 % 0.0-7.0 N code = EO%) Basophils % (Auto) (test code 0.6 % 0.0-2.0 N = BA%) Immature Granulocytes # (Auto) 0.06 x10 3/uL (test code = IMMGRAN#) Neutrophils # (Auto) (test 4.8 x10 3/uL 1.6-7.4 N code = NE#) Lymphocytes # (Auto) (test 2.66 x10 3/uL 0.50-4.60 N code = LY#) Monocytes # (Auto) (test code 0.68 x10 3/uL 0.00-1.20 N = MO#) Eosinophils # (Auto) (test 0.46 x10 3/uL 0.00-0.74 N code = EO#) Basophils # (Auto) (test code 0.05 x10 3/uL 0.00-0.21 N = BA#) nRBC Abs (test code = NRBCA) 0 nRBC Pct (test code = NRBCP) 0 % Ethanol [id number] 13:25:00 Test Item Value Reference Range Interpretation Comments Ethanol (test code < 3 mg/dL The pharm acological = ETOH) response to blo od alcohol levels mayvary from individual to i ndividual. The fatal alfredo ntrationhas been reported t o be >400mg/dL. Comprehensive Metabolic [id number] 13:25:00 Test Item Value Reference Range Interpretation Comments SODIUM (test code = NA) 143.0 mmol/L 136.0-145.0 N Potassium,K (test code = 4.2 mmol/L 3.0-5.1 N K) Chloride (test code = 110 mmol/L 98-107 H CL) Carbon Dioxide (test 26 mmol/L 20-31 N code = CO2) Anion Gap (test code = 7 mmol/L 5-15 N GAP) Blood Urea Nitrogen 16 mg/dL 9-23 N (test code = BUN) Creatinine (test code = 0.81 mg/dL 0.55-1.02 N CREATT) Creatinine Clr Calc 138.59 Pharmacy (test code = mL/min CRCLPHA) Estimated Glomerular 130 See_Comment Reporte d eGFR is Filt Rate (test code = based on the EGFR.XX) CKD-EPI 2020 equation thatdo es not use a race coefficient. Additional information can be found at:[id number]_y cb_ egfr_summary_fl flor 5.pdf (kidney.o rg) [Automated message] The system which generated this result transmit orion reference range : >=90 ml/min/1.73m2. The reference range was not used to interpret this result as normal/abnormal . BUN/Creatinine Ratio 20 ratio 10-20 N (test code = BCRATIO) Glucose (test code = 111 mg/dL 74-106 H GLU) Osmolality,Calculated 297.7 (test code = OSMOC) Calcium (test code = CA) 9.3 mg/dL 8.3-10.6 N Bilirubin,Total (test 0.2 mg/dL 0.2-1.1 N code = BILIT) Aspartate Amino 38 U/L 0-34 H Transferase (test code = AST) Alanine Aminotransferase 74 U/L 10-49 H (test code = ALT) Total Protein (test code 6.4 g/dL 5.7-8.2 N = TP) Albumin Level (test code 4.6 g/dL 3.2-4.8 N = ALB) Globulin (test code = 1.8 mg/dL 2.3-3.5 L GLOB) Albumin/Globulin Ratio 2.6 ratio 0.8-2.0 H (test code = AGRATIO) Alkaline Phosphatase 66 U/L 46-116 N (test code = ALP) Coronavirus NAAT, [id number] 13:25:00 Test Item Value Reference Range Interpretation Comments Coronavirus NAAT, COVD19 Reference Range: (test code = Negative [id number]) Coronavirus NAAT, COVD19 ical-devices/emergenc (test code = s-ldk-fgwoaihipwyabo. WLZEOMB9IZDS7.1) SARS-CoV-2 NAAT Result: Negative by RT-PCR (test code = SARS-CoV-2 NAAT Result:) [id number] 23:50:09 Test Item Value Reference Interpretation Comments Range D-DIMER (test code = <0.21 See_Comment [Autom ated [id number]) message] The system which generated this result transmitted reference range : <0.50 ?g/mL (FEU). The reference range was not used to interpret this result as normal/abnormal . BERTIN (test code = This test may be BERTIN) used in conjunction with a clinical pretest probability (PTP) assessment model to exclude venous thromboembolism (VTE) in patients suspected of deep venous thrombosis (DVT) and pulmonary embolism (PE) A D-Dimer value less than 0.50 ?g/ml (FEU) has a negative predicative value of 96 to 100% (95% CI)and 97 to 100% (95% CI) as an aid in the diagnosis of deep vein thrombosis (DVT) and pulmonary embolism when there is low or moderate pretest probability of PE or DVT. D-Dimer values are expressed in initial fibrinogen equivalent units (FEU)" The assay results should be used with other information, including the clinical context, in forming a diagnosis. Lab Interpretation Normal (test code = 67039-5) [facility] METABOLIC PANEL (NA, K, CL, CO2, GLUCOSE, BUN, CREATININE, CA)2021-12-06 23:46:01 Test Item Value Reference Range Interpretation Comments NA (test code = 141 mmol/L 135-145 0616981307) K (test code = 4.1 mmol/L 3.5-5.0 4589652959) CL (test code = 107 mmol/L 98-108 3589835760) CO2 TOTAL (test code = 23 mmol/L 23-31 4354023963) AGAP (test code = 2-16 8283941431) BUN (test code = 18 mg/dL 7-23 9176980131) GLUCOSE (test code = 116 mg/dL 70-110 H 5095100264) CREATININE (test code = 0.83 mg/dL 0.60-1.25 6599865233) CALCIUM (test code = 9.6 mg/dL 8.6-10.6 0509894296) eGFR (test code = mL/min/1.73m2 7169920893) BERTIN (test code = BERTIN) Association of Glomerular Filtration Rate (GFR) and Staging of Kidney Disease* + --+ --+ ------+| GFR (mL/min/1.73 m2) ?| With Kidney Damage ?| ?Without Kidney Damage+ --------+ --------+ +| ?>90 ?| ?Stage one ?| ? Normal ?+ ---+ ---+ -------+| ?60-89 ?| ?Stage two ?| ? Decreased GFR ? + --+ --+ ------+| ?30-59 ?| ?Stage three ?| ? Stage three ? + --+ --+ ------+| ?15-29 ?| ?Stage four ? | ? Stage four ?+ ---+ ---+ -------+| ?<15 (or dialysis) ? ?| ?Stage five ? | ? Stage five ?+ ---+ ---+ -------+ *Each stage assumes the associated GFR level has been in effect for at least three months. ?Stages 1 to 5, with or without kidney disease, indicate chronic kidney disease. Notes: Determination of stages one and two (with eGFR >59mL/min/1.73 m2) requires estimation of kidney damage for at least three months as defined by structural or functional abnormalities of the kidney, manifested by either:Pathological abnormalities or Markers of kidney damage (including abnormalities in the composition of the blood or urine or abnormalities in imaging tests). Lab Interpretation Abnormal (test code = 95066-6) [facility] WITH [id number] 23:43:30 Test Item Value Reference Range Interpretation Comments WBC (test code = See_Comment H [Automated 3290-2) message] The sy stem which generated this result transmitted reference range : 4.20 - 10.70 10*3/?L. The reference range was not used to interpret this result as normal/abnormal . RBC (test code = See_Comment H [Automated 559-8) message] The sy stem which generated this result transmitted reference range : 4.26 - 5.52 10*6/?L. The reference range was not used to interpret this result as normal/abnormal . HGB (test code = 18.3 g/dL 12.2-16.4 H 718-7) HCT (test code = 54.1 % 38.4-49.3 H 4544-3) MCV (test code = 89.0 fL 81.7-95.6 787-2) MCH (test code = 30.1 pg 26.1-32.7 785-6) MCHC (test code = 33.8 g/dL 31.2-35.0 786-4) RDW-SD (test code = 38.5 fL 38.5-51.6 86828-4) RDW-CV (test code = 11.9 % 12.1-15.4 L 788-0) PLT (test code = See_Comment [Automated 777-3) message] The sy stem which generated this result transmitted reference range : 150 - 328 10*3/ ?L. The reference r roya was not used to interpret this result as normal/abnormal . MPV (test code = 10.2 fL 9.8-13.0 88564-7) NRBC/100 WBC (test See_Comment [Automat ed code = 5068115098) message] The system which generated this result transmitted reference range : 0.0 - 10.0 /100 WBCs. The refer ence range was not u sed to interpret th is result as normal/abnormal . NRBC x10^3 (test code <0.01 See_Comment [Auto mated = 9622431264) message] The s ystem which generated this result transmitted reference range : 10*3/?L. The reference range was not used to interpret this result as normal/abnormal . GRAN MAT (NEUT) % 69.7 % (test code = 770-8) IMM GRAN % (test code 0.60 % = 7975969991) LYMPH % (test code = 18.4 % 736-9) MONO % (test code = 8.4 % 5905-5) EOS % (test code = 2.4 % 713-8) BASO % (test code = 0.5 % 706-2) GRAN MAT x10^3(ANC) 8.42 10*3/uL 1.99-6.95 H (test code = 0881331151) IMM GRAN x10^3 (test 0.07 10*3/uL 0.00-0.06 H code = 4553836662) LYMPH x10^3 (test code 2.22 10*3/uL 1.09-3.23 = 731-0) MONO x10^3 (test code 1.02 10*3/uL 0.36-1.02 = 742-7) EOS x10^3 (test code = 0.29 10*3/uL 0.06-0.53 711-2) BASO x10^3 (test code 0.06 10*3/uL 0.01-0.09 = 704-7) Lab Interpretation Abnormal (test code = 59278-1) [facility] Notes Date/Time Note Provider Source 2022-07-27 18:45:00-00:00 [facility] ([facility]) EMERGENCY PROVIDER REPORT REPORT#:[id number] REPORT STATUS: Signed DATE:07/27/22 TIME:1844 PATIENT: JOSELYN CISNEROS UNIT #: [id number] ROOM/BED: : 02 AGE: 22 SEX: M PCP PHYS: Cuauhtemoc Dumont DO SERVICE AUTHOR: Michael Blount DO * ALL edits or amendments must be made on the [employer]/computer document * HPI-Head Prob/Injury General Confirmed Patient Yes Initial Greet Date/Time 07/27/221842 Presentation Chief Complaint Blunt head trauma Hx Obtained From Family, EMS Unable to Obtain Hx Medical condition )( Onset Occurred Today Symptom Duration Brief Progression since Onset Resolved Exacerbated by Nothing Relieved by Nothing Risk-Head Prob/Injury Risk Stratification )( [place] Coma Score: Copyright Sir Wilder Omalley Copyright Sir Orestes Omalley GCS Score: 15 )( Intracranial Bleed Risk factors reviewed Review of Systems Focused Review of Systems Musculoskeletal Denies: Back pain, Extremity pain, Neck pain. Neurologic Denies: Change LOC, Confusio n, Focal weakness, Headache, Lightheaded, Numbness, Slurred speech, Spinning sensation, Syncope. Past Medical History - Adult Stated Complaint HIT HEAD ON WALL DURING AUTISTI C EPISODE Allergies Coded Allergies: No Known Allergies (06/07/12) Home Medications Reported Medications MONTELUKAST (SINGULAIR) 5 MG PO DAILY FLUTICASONE PROPIONATE (FLOVENT HFA 44 MCG/ACT) 2 PUFF INH BID ZONISAMIDE (ZONEGRAN) 400 MG PO DAILY LORazepam (ATIVAN) 0.5 MG PO BID BRINZOLAMIDE (AZOPT 1% OPHTH) 1 DROP BID [BANZEL] 900 MG BID MOMETASONE FUROATE (NASONEX 50 MCG/ACT NASAL) 2 PUFFS OD Additional Medical History autism Physical Exam Vital Signs Vital Signs First Documented: Result Date Time Pulse Ox 98 07/27 1854 B/P 116/81 07/27 1854 B/P Mean 92 07/27 1854 O2 Delivery Room air 07/27 1854 Temp 97.8 07/27 1854 Pulse 81 07/27 1854 Resp 18 07/27 1854 Last Documented: Result Date Time Pulse Ox 98 07/27 1854 B/P 116/81 07/27 1854 B/P Mean 92 07/27 1854 O2 Delivery Room air 07/27 1854 Temp 97.8 07/27 1854 Pulse 81 07/27 1854 Resp 07/27 Review of Vital Signs Reviewed Focused PE General/Const General/Const Awake, Alert MS Head Head Normocephalic Text/Dict Notes forehead contusion present, no deformity, crepit us or skull fracture to palpation Eyes Eyes PERRL, EOMI, No periorbital swelling, Conj unctiva NL Ears/Nose/Throat Ears/Nose/Throat Atraumatic, Airway patent, Muc ous membranes moist, Pharynx NL, Tympanic membs NL, Ext aud canal NL MS Neck Neck Atraumatic, Supple, Full range of motion, No swelling, Non-tender, No midline vertebral tend, No masses Resp/Chest Respiratory/Chest Breath sounds NL, Breath soun ds = bilat, No respiratory distress, No rales, No rhonchi, No wheezing Cardiovascular Cardiovascular Heart rate NL, Regular rhythm, H eart sounds NL, Peripheral circulation NL MS Upper Extrem Upper Extremity/MS Inspection NL, No swelling, Non-tender, No erythema, No deformity, Neurologic intact, Vascular intact, N o clubbing/cyanosis MS Lower Extrem Lower Ext/Pelvis/MS Inspection NL, No swelling, Non-tender, No erythema, No deformity, Neurologic intact, Vascular intact, N o edema Skin Skin Color NL, Warm, Dry, Turgor NL Neurologic Neurologic Oriented X3, Speech NL, No m otor deficits, No sensory deficits, CN II - XII intact, Cerebellar NL Psychiatric Psychiatric Affect NL, Mood NL, Cognitive funct ion NL, Thought content NL Interpretation Diagnostics Lab Results Interpretation Results Recent Impressions: CAT SCAN - CT HEAD/BRAIN W/O CONT 07/27 1919 Report Impression - Status: SIGNED Entered: 07/27/20221938 IMPRESSION: 1. No acute intracranial abnormality. 2. 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 Impression By: [email or web address] Joel Adler MD Re-Evaluation MDM Re-Evaluation/Progress #1 Time of Re-Eval 1929 Re-Eval Status Improved ED Course Medication(s) Ordered Medication(s) Ordered: Central Nervous System Agents Sig/[place] Start time Last Medication Dose Route Stop Time Status Admin Ibuprofen 800 MG X1ED STA 07/27 1844 DC 07/27 PO 07/27 1845 190 Differential Diagnosis Differential Diagnosis Basilar skull fracture, B noy head trauma, Cerebral contusion, Cervical spine injury, Closed head in jury, Contusion, Intracranial hemorrhage Pert Findings/Considerations Presentation Acute Severity Evaluation Non life-threatening Diagnosis Appears Clear Patient Discharge Departure Vital Signs/Condition Vital Signs First Documented: Result Date Time Pulse Ox 98 07/27 185 B/P 116/81 07/27 1855 B/P Mean 92 07/27 185 O2 Delivery Room air 07/27 185 Temp 97.8 07/27 185 Pulse 81 07/27 1855 Resp 18 07/27 1854 Last Documented: Result Date Time Pulse Ox 98 07/27 1855 B/P 116/81 07/27 185 B/P Mean 92 07/27 185 O2 Delivery Room air 07/27 1854 Temp 97.8 07/27 185 Pulse 81 07/27 185 Resp 18 07/27 1854 All vital signs available at the time of this en try have been reviewed. Clinical Impression Clinical Impression Primary Impression: Scalp contusion Disposition Decision Discharge )( Discharged to Home Yes )( Time 194 )( Date 07/27/22 Discharge/Care Plan Counseled Regarding Diagnosis, Imaging studies, Need for follow-up, When to return to ED Patient Instructions ED Scalp Contusion Additional Instructions Follow-up with your primary care physician as silvio eded Electronically Signed by Michael Blount DO on at 1917 RPT #: [id number] END OF REPORT
--- NOTE | 2023-02-04 12:50 | RAD REPORT ---
EXAM DESCRIPTION: US - Abdomen Exam Limited - 02/04/2023 12:32 pm CLINICAL HISTORY: NAUSEA / VOMITING Abdominal pain COMPARISON: No comparisons FINDINGS: The gallbladder demonstrates echogenic debris within the gallbladder. No pericholecystic f luid or gallbladder wall thickening. The common bile duct is mildly enlarged measuring 8 mm. The liver demonstrates no findings of intrahepatic biliary dilatation. IMPRESSION: Echogenic sludge and debris within the gallbladder without clear defined stones. Common bile duct appears dilated for age. MRCP may be helpful for further evaluation.
[2023-02-04] MEDS ORDERED: ONDANSETRON 4 MG/2 ML VIAL ONE (12:51)
[2023-02-04] MEDS ORDERED: FAMOTIDINE 20 MG/2 ML VIAL IV ONE (12:51)
[2023-02-04] MEDS ORDERED: NA CHLORIDE 0.9% 1,000 ML ONE (12:51)
[2023-02-04 13:10] LABS: SARS-CoV-2 Antigen Rapid Res Negative (Negative)
[2023-02-04 13:26] LABS: Absolute Lymphocytes (CBC) 2.2 K/uL (0.7-4.9); Hematocrit 53.8 % (39.6-49.0); Lymphocytes % 24.4 % (15.3-44.8); MCV 92.6 fL (80-100); MPV 9.9 fL (7.6-11.3); Platelets 179 thou/uL (152-406); RBC Red Blood Cell Count 5.82 M/uL (4.33-5.43)
[2023-02-04 13:27] LABS: Specific Gravity 1.028 (1.005-1.030); Urine Bacteria None Seen /HPF (<20); Urine Bilirubin NEGATIVE (Negative); Urine Blood Negative (Negative); Urine Clarity Clear (Clear); Urine Color Yellow (Yellow); Urine Glucose NEGATIVE (Negative); Urine Mucus Slight /HPF (None Seen); Urine Protein TRACE (Negative); Urine RBC <5 /HPF (None Seen); Urine Urobilinogen 1+ (Normal); Urine pH 6.5 (5.0-7.0)
[2023-02-04 13:43] LABS: Albumin 4.2 g/dL (3.4-5.0); Bilirubin Total 0.5 mg/dL (0.2-1.0); Protein, Total 7.8 g/dL (6.4-8.2)
--- NOTE | 2023-02-04 14:18 | RAD REPORT ---
EXAM DESCRIPTION: CT - Abdomen Pelvis W Contrast - 02/04/2023 1:50 pm CLINICAL HISTORY: abd pain vomiting COMPARISON: No comparisons TECHNIQUE: Thin cut axial CT imaging of the abdomen and pelvis was performed following intravenous a dministration of 100 mL Isovue 300. Multiplanar reformats were generated and reviewed. All CT scans are performed using dose optimization technique as appropriate and may include automated exposure control or mA/KV adjustment according to patient size. FINDINGS: Confluent ground-glass nodules in the dependent left lower lobe. Trace layering pleural ef fusions. Liver is mildly enlarged, demonstrating diffuse hepatic parenchymal hypoattenuation suggesting steato sis. Spleen demonstrates thin capsular calcifications laterally, nonspecific. The adrenal glands, and pancreas show no suspicious findings. Gallbladder and biliary tree are also without suspicious findi ng. Symmetric renal function is seen with no hydronephrosis or suspicious renal mass. 2-3 millimeter nono bstructing left superior renal pole calculus. No dilated bowel loops or bowel wall thickening. Appendix is unremarkable. No free air, free fluid or inflammatory stranding. No hernia, mass or bulky lymphadenopathy. The urinary bladder is without sig nificant finding. No suspicious bony findings. IMPRESSION: Diffuse hepatic parenchymal hypoattenuation suggesting steatosis or medical hepatocellul ar disease. Left superior renal pole 2-3 millimeter nonobstructing calculus. Confluent small ground-glass nodules in the dependent left lower lobe with trace effusions. Possibili ty of an early pneumonia should be considered.
--- NOTE | 2023-02-04 14:55 | RAD REPORT ---
EXAM DESCRIPTION: MRI - Cholangiogram - 02/04/2023 2:28 pm CLINICAL HISTORY: vomiting/ abd pain COMPARISON: Abdomen Exam Limited dated 02/04/2023; Abdomen Pelvis W Contrast dated 02/04/2023 TECHNIQUE: Multiplanar multisequence MRI of the abdomen, obtained without IV contrast, utilizing M BOILER TUBE REAMER technique. FINDINGS: Trace pleural effusions. Confluent lower lobe ground-glass nodularity, better evaluated on prior CT. Liver and spleen show no focal lesions. Adrenal glands and kidneys are unremarkable. The gallbladder shows no hypointense filling defects to suggest calculi. Intra and extrahepatic bilia ry ducts are not dilated, with the common bile duct measuring up to 4 millimeter distally. The degree of dilation seen on ultrasound may have been transient and due to peristalsis. The visualized bowel is unremarkable. No suspicious masses or adenopathy in the abdomen. IMPRESSION: No intra or extrahepatic biliary ductal dilation. No evidence of calculi. Trace pleural effusions. Confluent left lower lung lobe ground-glass nodules are better evaluated on prior CT.
--- NOTE | 2023-02-04 15:16 | EDPHYS ---
Physician Documentation [facility] Name: Mars Cisneros Age: 22 yrs Sex: Male : 2000 Arrival Date: 02/04/2023 Time: 11:49 Bed 9 Private MD: ED Physician Xavier Amaya HPI: 02/04 12:23 This 22 yrs old Male presents to ER via Ambulatory with complaints of Vomiting. rn 12:23 The patient presents to the emergency department with nausea, vomiting. Onset: The rn symptoms/episode began/occurred yesterday. Possible causes: unknown. The symptoms are aggravated by nothing. The symptoms are alleviated by prescription meds. Associated signs and symptoms: Pertinent negatives: abdominal pain, fever, GI bleeding. Severity of symptoms: At their worst the symptoms were mild in the emergency department the symptoms have improved. The patient has experienced similar episodes in the past. Family member reports vomiting since yesterday, no abd pain, no fever. Family member "getting over flu". Does not recall if flu a or b. Patient denies abd pain. NO diarrhea. No cough/congestion. No headache. . 12:23 Family reports otherwise acting normal and at baseline.. 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 - Social history:: Smoking status: Patient denies any tobacco usage or history of. - Family history:: not pertinent. - Hospitalizations: : No recent hospitalization is reported. ROS: 12:23 Constitutional: Negative for fever, chills, and weight loss, Eyes: Negative for injury, rn pain, redness, and discharge, Neck: Negative for injury, pain, and swelling, Cardiovascular: Negative for chest pain, palpitations, and edema, Respiratory: Negative for shortness of breath, cough, wheezing, and pleuritic chest pain, Abdomen/GI: Negative for abdominal pain, diarrhea, and constipation, Back: Negative for injury and pain, MS/Extremity: Negative for injury and deformity, Skin: Negative for injury, rash, and discoloration, Neuro: Negative for headache, numbness, tingling, and seizure. Exam: 12:23 Constitutional: This is a well developed, well nourished patient who is awake, alert, rn and in no acute distress. Ambulatory with cane (blind at baseline) Head/Face: Normocephalic, atraumatic. ENT: MMM Neck: Trachea midline, no masses palpated, and no cervical lymphadenopathy. Supple, full range of motion without nuchal rigidity, or vertebral point tenderness. No Meningismus. Cardiovascular: Regular rate and rhythm. No pulse deficits. Respiratory: No increased work of breathing, no retractions or nasal flaring. Abdomen/GI: Soft, non-tender Skin: Warm, dry MS/ Extremity: Pulses equal, no cyanosis. Neuro: Awake and alert, GCS 15, oriented to person, place, time, and situation. Motor strength 5/5 in all extremities. Sensory grossly intact. Cerebellar exam normal. Normal gait. Vital Signs: 11:58 BP 135 / 84; Pulse 68; Resp 18; Temp 98.1; Pulse Ox 100% on R/A; Weight 100.7 kg; mb9 Height 5 ft. 4 in. ; Pain 0/10; 14:58 BP 113 / 75; Pulse 51; Resp 18; Pulse Ox 98% on R/A; Pain 0/10; nj1 16:12 BP 129 / 87; Pulse 86; Resp 18; Pulse Ox 96% on R/A; bp 11:58 Body Mass Index 38.11 (100.70 kg, 162.56 cm) mb9 11:58 Pain Scale: Adult mb9 14:58 Pain Scale: Adult nj1 MDM: 11:53 Patient medically screened. rn 15:08 Differential diagnosis: Nonspecific abd pain, gastritis, cholecystitis, pancreatitis, rn diverticulitis, viral gastroenteritis, gastroenteritis, pneumonia. Data reviewed: vital signs, nurses notes, lab test result(s), radiologic studies, CT scan, plain films, ultrasound, and as a result, I will discharge patient. Counseling: I had a detailed discussion with the patient and/or guardian regarding: the historical points, exam findings, and any diagnostic results supporting the discharge/admit diagnosis, lab results, radiology results, the need for outpatient follow up, to return to the emergency department if symptoms worsen or persist or if there are any questions or concerns that arise at home. Response to treatment: the patient's symptoms have markedly improved after treatment, and as a result, I will discharge patient. Special discussion: I discussed with the patient/guardian in detail that at this point there is no indication for admission to the hospital. It is understood, however, that if the symptoms persist or worsen the patient needs to return immediately for re-evaluation. ED course: MRCP without acute findings that were suggested on U/S, likely fatty liver, both images show possible developing pneumonia, no oxygem requirement, family reports has been coughing. Could still be flu given first 24-48 hours, but will treat with abx, and given return precautions. . 15:13 Consideration of Admission/Observation Patient was admitted/placed on observation. rn Escalation of care including admission/observation considered. ED course: Pt failed PO challenge, continues to have emesis despite oral zofran at home, and IV zofran here. Unable to take PO abx, will admit here. . 02/04 12:03 Order name: CBC with Diff; Complete Time: 13:40 rn 02/04 12:03 Order name: CMP; Complete Time: 13:50 rn 02/04 12:03 Order name: Lipase; Complete Time: 13:50 rn 02/04 12:03 Order name: Urinalysis w/ reflexes; Complete Time: 13:40 rn 02/04 12:03 Order name: SARS RAPID; Complete Time: 13:40 rn 02/04 12:03 Order name: Flu; Complete Time: 13:40 rn 02/04 12:03 Order name: CT Abd/Pelvis - IV Contrast Only; Complete Time: 14:37 rn 02/04 12:03 Order name: US Abdomen Limited; Complete Time: 13:40 rn 02/04 13:44 Order name: Cholangiogram; Complete Time: 14:59 EDMS 02/04 12:03 Order name: IV Saline Lock; Complete Time: 13:22 rn 02/04 12:03 Order name: Labs collected and sent; Complete Time: 13:22 rn Administered Medications: 13:11 Drug: NS 0.9% IV 1000 ml Route: IV; Rate: 1 bolus; Site: right forearm; nj1 13:11 Drug: Ondansetron IVP 4 mg Route: IVP; Site: right forearm; nj1 13:13 Drug: Famotidine IVP 20 mg Route: IVP; Site: right forearm; nj1 15:13 CANCELLED (Duplicate Order): LevOfloxacin PO 500 mg PO once rn 16:00 Drug: Promethazine IVP 12.5 mg Route: IVP; Site: right forearm; bp 16:32 Follow up: Response: No adverse reaction bp 16:07 Drug: levofloxacin IVPB 500 mg Volume: 100 ml; Route: IVPB; Infused Over: 60 mins; bp Site: right forearm; Disposition Summary: 02/04/23 15:15 Hospitalization Ordered Hospitalization Status: Observation rn Provider: Yris Craft rn [facility] rn Condition: Stable rn Problem: new rn Symptoms: are unchanged rn Bed/Room Type: Standard rn Room Assignment: [facility](02/04/23 16:39) kj1 Diagnosis - Pneumonia, unspecified organism rn - Intractable vomiting rn Forms: - Medication Reconciliation Form rn - SBAR form rn Signatures: Dispatcher [employer] EDXavier Atwood MD MD rn Peltier, Brian, RN RN Stacey Cedeno Mary Beth, RN RN mb9 Kori Sosa, RN RN nj1 Corrections: (The following items were deleted from the chart) 15:13 15:08 LevOfloxacin PO 500 mg PO once ordered. rn rn 16:39 15:15 rn kj1
--- NOTE | 2023-02-04 15:16 | ER ---
Nurse's Notes [facility] Name: Mars Cisneros Age: 22 yrs Sex: Male : 2000 Arrival Date: 02/04/2023 Time: 11:49 Bed 9 Private MD: Diagnosis: Pneumonia, unspecified organism;Intractable vomiting Presentation: 02/04 11:58 Chief complaint: Parent and/or Guardian states: "He can't quit vomiting since last mb9 night. Every time we feed him, he wants to throw up. We had the flu so were worried he has it. He doesn't have any diarrhea". Coronavirus screen: nausea, vomiting. Ebola Screen: No symptoms or risks identified at this time. Initial Sepsis Screen: Does the patient meet any 2 criteria? No. Patient's initial sepsis screen is negative. Does the patient have a suspected source of infection? No. Patient's initial sepsis screen is negative. Risk Assessment: Do you want to hurt yourself or someone else? Patient reports no desire to harm self or others. Onset of symptoms was 2022. 11:58 Method Of Arrival: Ambulatory mb9 11:58 Acuity: NELLI 3 mb9 Triage Assessment: 12:02 General: Appears uncomfortable, Behavior is calm, cooperative. Pain: Denies pain. mb9 Cardiovascular: Patient's skin is warm and dry. GI: Reports nausea, vomiting, Patient currently denies diarrhea. Derm: Skin is pink, warm \\T\\ dry. 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 - Social history:: Smoking status: Patient denies any tobacco usage or history of. - Family history:: not pertinent. - Hospitalizations: : No recent hospitalization is reported. Screenin:00 [facility] ED Fall Risk Assessment (Adult) Score/Fall Risk Level 0 - 2 = Low Risk bp Oriented to surroundings, Maintained a safe environment, Hourly rounding (assess needs \\T\\ fall precautionary measures) done. Abuse screen: Denies threats or abuse. Denies injuries from another. Nutritional screening: No deficits noted. Tuberculosis screening: No symptoms or risk factors identified. Assessment: 12:34 Reassessment: Not in waiting room, in imaging. nj1 13:50 Reassessment: Not in room at this time, in imaging. nj1 14:58 Reassessment: Patient appears in no apparent distress at this time. Patient and/or nj1 family updated on plan of care and expected duration. Pain level reassessed. Patient is alert, oriented x 3, equal unlabored respirations, skin warm/dry/pink. Patient denies pain at this time. 15:10 Reassessment: PO challenge attempted with no success. Dr Amaya notified. nj1 16:00 Reassessment: Patient appears in no apparent distress at this time. Patient and/or bp family updated on plan of care and expected duration. Pain level reassessed. Patient is alert, oriented x 3, equal unlabored respirations, skin warm/dry/pink. GI: Pt is actively vomiting. 16:58 Reassessment: Waiting on registration to flip patient so he can be moved upstairs. bp 17:06 Reassessment: Patient appears in no apparent distress at this time. Patient and/or bp family updated on plan of care and expected duration. Pain level reassessed. Pt resting/sleeping. No needs voiced at this time. Vital Signs: 11:58 BP 135 / 84; Pulse 68; Resp 18; Temp 98.1; Pulse Ox 100% on R/A; Weight 100.7 kg; mb9 Height 5 ft. 4 in. ; Pain 0/10; 14:58 BP 113 / 75; Pulse 51; Resp 18; Pulse Ox 98% on R/A; Pain 0/10; nj1 16:12 BP 129 / 87; Pulse 86; Resp 18; Pulse Ox 96% on R/A; bp 11:58 Body Mass Index 38.11 (100.70 kg, 162.56 cm) mb9 11:58 Pain Scale: Adult mb9 14:58 Pain Scale: Adult nj1 ED Course: 11:53 Patient arrived in ED. mr 11:53 Xavier Amaya MD is Attending Physician. rn 11:58 Arm band placed on. mb9 12:02 Triage completed. mb9 12:32 Kori Sosa, RN is Primary Nurse. nj1 12:33 US Abdomen Limited In Process Unspecified. EDMS 12:43 Radiology exam delayed due to IV insertion attempt and/or patient not having ls3 appropriate IV at this time. 12:53 Flu Sent. aw1 12:53 SARS RAPID Sent. aw1 13:00 Patient has correct armband on for positive identification. Bed in low position. Call bp light in reach. Side rails up X 1. Adult w/ patient. 13:00 Provided Education on: fall precautions, call light. bp 13:11 Inserted saline lock: 20 gauge in right forearm, using aseptic technique. ,using nj1 aseptic technique. Ultrasound guided. Catheter tip well visualized within vasculature during placement. Blood collected. 13:52 CT Abd/Pelvis - IV Contrast Only In Process Unspecified. EDMS 14:29 Cholangiogram In Process Unspecified. EDMS 15:15 Yris Craft MD is Hospitalizing Provider. rn 16:50 No provider procedures requiring assistance completed. Patient admitted, IV remains in bp place. Administered Medications: 13:11 Drug: NS 0.9% IV 1000 ml Route: IV; Rate: 1 bolus; Site: right forearm; nj1 13:11 Drug: Ondansetron IVP 4 mg Route: IVP; Site: right forearm; nj1 13:13 Drug: Famotidine IVP 20 mg Route: IVP; Site: right forearm; nj1 15:13 CANCELLED (Duplicate Order): LevOfloxacin PO 500 mg PO once rn 16:00 Drug: Promethazine IVP 12.5 mg Route: IVP; Site: right forearm; bp 16:32 Follow up: Response: No adverse reaction bp 16:07 Drug: levofloxacin IVPB 500 mg Volume: 100 ml; Route: IVPB; Infused Over: 60 mins; bp Site: right forearm; Medication: 16:50 VIS not applicable for this client. bp Outcome: 15:15 Decision to Hospitalize by Provider. rn 16:51 Admitted to Med/surg accompanied by tech, via wheelchair, room 221, Report called to bp Nurse Chandu 16:51 Condition: stable 16:51 Instructed on the need for admit. 17:55 Patient left the ED. nj1 Signatures: Dispatcher [employer] JAZMINE Aly Aliza AmayaXavier MD MD rn Peltier, Brian, RN RN bp Gigi Alexander ls3 Junie, Aliza Jimenez, RN RN mb9 Kori Sosa RN RN nj1 Sara De La Torre aw1 Corrections: (The following items were deleted from the chart) 12:03 11:58 Acuity: NELLI 4 mb9 mb9 12:03 11:58 Pulse 68bpm; Resp 18bpm; Pulse Ox 100% RA; Temp 98.1F; 100.7 kg; Height 5 ft. 4 mb9 in.; BMI: 38.1; Pain 0/10, Adult; mb9 14:58 14:58 BP 113 / 75; Pulse 51bpm; Resp 18bpm; nj1 nj1
--- NOTE | 2023-02-04 15:50 | P.HP ---
Patient History Date of Service: 02/04/23 Allergies No Known Allergies Allergy (Unverified 02/04/23 13:42) Physical Examination - Studies Laboratory Data (last 24 hrs) 02/04/23 02/04/23 13:11 13:11 WBC 9.10 Hgb 17.7 Hct 53.8 H Plt Count 179 Sodium 139 Potassium 4.0 BUN 20 H Creatinine 1.21 Glucose 98 Total Bilirubin 0.5 AST 128 H ALT 165 H Alkaline Phosphatase 60 Lipase 19 Microbiology Data (last 24 hrs): 02/04/23 12:46 Nasopharnyx Influenza Type A Antigen Screen - Final 02/04/23 12:46 Nasopharnyx Influenza Type B Antigen Screen - Final Assessment and Plan - Advance Directives Does patient have a Living Will: No Does patient have a Durable POA for Healthcare: No
[2023-02-04] MEDS ORDERED: Levofloxacin500mg IV 500 MG/100 ML BAG IV ONE (16:02)
[2023-02-04] MEDS ORDERED: PROMETHAZINE INJ 25 MG/ML AMP ONE (16:06)
[2023-02-04] MEDS ORDERED: ONDANSETRON 4 MG/2 ML VIAL IV PRN (17:38)
[2023-02-04] MEDS ORDERED: ACETAMINOPHEN 500 MG TAB PO PRN (17:38)
[2023-02-04] MEDS ORDERED: MAGNESIUM CITRATE 300 ML BOT PO ONE (18:00)
[2023-02-04] MEDS ORDERED: BISACODYL 10 MG RECTAL SUPP PR ONE (18:00)
[2023-02-04 18:30] VITALS: BMI 38.9
[2023-02-04] MEDS: D5 0.9 NS 1,000 ML IV SCH (18:45)
[2023-02-04] MEDS: HEPARIN 5000 UNIT/ML 1 ML VIAL SQ SCH (18:45)
--- NOTE | 2023-02-04 18:57 | P.HP ---
Certification for Inpatient Patient admitted to: Observation With expected LOS: <2 Midnights Practitioner: I am a practitioner with admitting privileges, knowledge of patient current condition, hospital course, and medical plan of care. Services: Services provided to patient in accordance with Admission requirements found in Title 42 Section 412.3 of the Code of Federal Regulations Patient History Date of Service: 02/04/23 Reason for admission: Vomiting History of Present Illness: 22-year-old with a history of autism was brought to the emergency department due to intractable vomiting for 1 day duration. Patient is adopted. Family reported anything that into his throat causes him to vomit and has not been able to hold any food or drink in. CT abdomen done in the emergency department was unremarkable except moderate stool burden. Chest CT shows subtle signs of left- sided early developing pneumonia. Blood work is unremarkable except elevated AST and ALT. Patient continued to vomit with oral challenge in the ED. He is hospitalized for further management. Allergies No Known Allergies Allergy (Unverified 02/04/23 13:42) Home Medications: Clobazam [Onfi] 2 tab PO BEDTIME 02/04/23 Clobazam [Onfi] 5 mg PO DAILY 02/04/23 Divalproex Sodium [Depakote] 1 tab PO DAILY 02/04/23 Divalproex Sodium [Depakote] 2 tab PO BEDTIME 02/04/23 Escitalopram [Lexapro*] 1 tab PO DAILY 02/04/23 Linden Carbonate [Linden Carbonate ER] 1 tab PO BID 02/04/23 Montelukast [Singulair*] 1 tab PO BEDTIME 02/04/23 OLANZapine [Zyprexa*] 30 mg PO BEDTIME 02/04/23 Quetiapine Fumarate [Seroquel] 1 tab PO PRN 02/04/23 clonazePAM [Clonazepam] 1 tab PO PRN 02/04/23 - Past Medical/Surgical History -: Autism -: Psychiatric disorders -: Bowel surgery for congenital disorder - Family History Mother -: Other (see notes) (Leukemia) - Social History Smoking Status: Never smoker Alcohol use: No CD- Drugs: No Place of Residence: Home Review of Systems Other: No reported fever, no reported diarrhea. Family reports chronic constipation issues. Unable to obtain full review of systems due to autism. Physical Examination - Vital Signs Temperature: 98.1 F Blood Pressure: 129/87 Pulse: 86 Respirations: 18 - Physical Exam General: Alert, In no apparent distress, Other (Awake) HEENT: Mucous membr. moist/pink Neck: JVD not distended Respiratory: Clear to auscultation bilaterally, Normal air movement Cardiovascular: No edema, Regular rate/rhythm, Normal S1 S2 Gastrointestinal: Soft and benign, Non-distended, No tenderness Musculoskeletal: No swelling Integumentary: No rashes, No cyanosis Neurological: Normal speech, Normal strength at 5/5 x4 extr Lymphatics: No axilla or inguinal lymphadenopathy - Studies Laboratory Data (last 24 hrs) 02/04/23 02/04/23 13:11 13:11 WBC 9.10 Hgb 17.7 Hct 53.8 H Plt Count 179 Sodium 139 Potassium 4.0 BUN 20 H Creatinine 1.21 Glucose 98 Total Bilirubin 0.5 AST 128 H ALT 165 H Alkaline Phosphatase 60 Lipase 19 Microbiology Data (last 24 hrs): 02/04/23 12:46 Nasopharnyx Influenza Type A Antigen Screen - Final 02/04/23 12:46 Nasopharnyx Influenza Type B Antigen Screen - Final Assessment and Plan - Problems (Diagnosis) (1) Intractable vomiting Current Visit: Yes Status: Acute (2) Functional constipation Current Visit: Yes Status: Acute (3) Pneumonia Current Visit: Yes Status: Acute (4) Autism Current Visit: Yes Status: Acute (5) Epilepsy Current Visit: Yes Status: Acute - Plan Patient placed under observation. Supportive measures with IV fluid. Start IV antibiotics-Rocephin and Zithromax for pneumonia. I suspect vomiting secondary to functional constipation. Start laxatives-mag citrate and Dulcolax. Clear liquid diet. Resume home medications for epilepsy, and psychiatric disorders.
[2023-02-04 19:40] LABS: Thyroid Stimulating Hormone 5.08 uIU/mL (0.358-3.740)
[2023-02-04] MEDS ORDERED: MONTELUKAST 10 MG TAB PO SCH (21:00)
[2023-02-04] MEDS ORDERED: DIVALPROEX DR 500MG TAB PO SCH (23:00)
[2023-02-05] MEDS: HEPARIN 5000 UNIT/ML 1 ML VIAL SQ SCH ×2 (01:00→09:00)
[2023-02-05 01:32] VITALS: O2SAT 92
[2023-02-05 04:56] LABS: Absolute Lymphocytes (CBC) 2.4 K/uL (0.7-4.9); Hematocrit 46.6 % (39.6-49.0); Lymphocytes % 18.9 % (15.3-44.8); MCV 92.7 fL (80-100); MPV 9.6 fL (7.6-11.3); Platelets 149 thou/uL (152-406); RBC Red Blood Cell Count 5.03 M/uL (4.33-5.43)
[2023-02-05 05:23] LABS: ALT/SGPT 113 U/L (16-61); AST/SGOT 59 U/L (15-37); Albumin 3.2 g/dL (3.4-5.0); Alkaline Phosphatase 49 U/L (45-117); BUN Blood Urea Nitrogen 15 mg/dL (7-18); Bicarbonate 25 mEq/L (21-32); Bilirubin Total 0.5 mg/dL (0.2-1.0); Glomerular Filtration Rate 94 ml/min (=/>90); Glucose Level 120 mg/dL (74-106); HDL Cholesterol 18 mg/dL (40-60); Magnesium 2.2 mg/dL (1.6-2.4); Phosphorus 3.8 mg/dL (2.5-4.9); Potassium 3.8 mEq/L (3.5-5.1); Protein, Total 6.3 g/dL (6.4-8.2); Sodium Level 139 mEq/L (136-145)
[2023-02-05 05:35] LABS: LDL, Direct 136 mg/dL (100-129)
[2023-02-05] MEDS: D5 0.9 NS 1,000 ML IV SCH (05:49)
[2023-02-05 08:45] VITALS: BP 100/54; TEMP 98.9
[2023-02-05] MEDS ORDERED: CEFTRIAXONE 1,000 MG in NA CHLORIDE 0.9% 50 ML IVPB SCH (09:00)
[2023-02-05] MEDS ORDERED: AZITHROMYCIN IV 500 MG in NA CHLORIDE 0.9% 250 ML IVPB SCH (09:00)
[2023-02-05] MEDS ORDERED: POTASSIUM CL SA 10 MEQ TAB PO ONE (09:00)
[2023-02-05] MEDS ORDERED: NA CHLORIDE 0.9% 250 ML ONE (09:25)
--- NOTE | 2023-02-05 11:04 | P.DS ---
Admission Date: 02/04/23 Discharge Date: 02/05/23 Disposition: ROUTINE DISCHARGE Discharge Condition: FAIR Reason for Admission: Vomiting - Problems (1) Intractable vomiting Current Visit: Yes Status: Acute (2) Functional constipation Current Visit: Yes Status: Acute (3) Pneumonia Current Visit: Yes Status: Acute (4) Autism Current Visit: Yes Status: Acute (5) Epilepsy Current Visit: Yes Status: Acute Brief History of Present Illness: 22-year-old with a history of autism was brought to the emergency department due to intractable vomiting for 1 day duration. Patient is adopted. Family reported anything that into his throat causes him to vomit and has not been able to hold any food or drink in. CT abdomen done in the emergency department was unremarkable except moderate stool burden. Chest CT shows subtle signs of left- sided early developing pneumonia. Blood work is unremarkable except elevated AST and ALT. Patient continued to vomit with oral challenge in the ED. He is hospitalized for further management. Hospital Course: Patient placed under observation on the medical floor and treated supportively with IV fluid, placed on clear liquid diet. He was also started on IV Rocephin and Zithromax for any developing pneumonia. Patient was given Dulcolax suppository for functional constipation. He clinically improved, he was afebrile, stable respiratory gomez. He also had a bowel movement. He tolerated liquid diet and diet advancement. Patient is clinically stable for discharge. Vital Signs/Physical Exam: Temp Pulse Resp BP Pulse Ox 98.9 F 63 16 100/54 L 95 02/05/23 08:00 02/05/23 08:00 02/05/23 08:00 02/05/23 08:00 02/05/23 08:00 General: Obese, Other (Awake) Neck: JVD not distended Respiratory: Clear to auscultation bilaterally, Normal air movement Cardiovascular: Regular rate/rhythm, Normal S1 S2 Gastrointestinal: Soft and benign, Non-distended Musculoskeletal: No swelling Integumentary: No rashes Neurological: Other (No focal motor deficit) Laboratory Data at Discharge: WBC 12.60 thou/uL (4.3-10.9) H 02/05/23 04:37 Hgb 15.3 g/dL (13.6-17.9) D 02/05/23 04:37 Hct 46.6 % (39.6-49.0) 02/05/23 04:37 Plt Count 149 thou/uL (152-406) L 02/05/23 04:37 Sodium 139 mEq/L (136-145) 02/05/23 04:37 Potassium 3.8 mEq/L (3.5-5.1) 02/05/23 04:37 BUN 15 mg/dL (7-18) 02/05/23 04:37 Creatinine 1.14 mg/dL (0.70-1.30) 02/05/23 04:37 Glucose 120 mg/dL (74-106) H 02/05/23 04:37 Phosphorus 3.8 mg/dL (2.5-4.9) 02/05/23 04:37 Magnesium 2.2 mg/dL (1.6-2.4) 02/05/23 04:37 Total Bilirubin 0.5 mg/dL (0.2-1.0) 02/05/23 04:37 AST 59 U/L (15-37) H 02/05/23 04:37 ALT 113 U/L (16-61) H 02/05/23 04:37 Alkaline Phosphatase 49 U/L (45-117) 02/05/23 04:37 Triglycerides 501 mg/dL (<150) H 02/05/23 04:37 Cholesterol 224 mg/dL (<200) H 02/05/23 04:37 LDL Cholesterol Direct 136 mg/dL (100-129) H 02/05/23 04:37 HDL Cholesterol 18 mg/dL (40-60) L 02/05/23 04:37 Cholesterol/HDL Ratio 12.44 02/05/23 04:37 Lipase 19 U/L (13-75) 02/04/23 13:11 Home Medications: Clobazam [Onfi] 2 tab PO BEDTIME 02/04/23 Clobazam [Onfi] 5 mg PO DAILY 02/04/23 Divalproex Sodium [Depakote] 1 tab PO DAILY 02/04/23 Divalproex Sodium [Depakote] 2 tab PO BEDTIME 02/04/23 Escitalopram [Lexapro*] 1 tab PO DAILY 02/04/23 Sandstone Carbonate [Sandstone Carbonate ER] 1 tab PO BID 02/04/23 Montelukast [Singulair*] 1 tab PO BEDTIME 02/04/23 OLANZapine [Zyprexa*] 30 mg PO BEDTIME 02/04/23 Quetiapine Fumarate [Seroquel] 1 tab PO PRN 02/04/23 clonazePAM [Clonazepam] 1 tab PO PRN 02/04/23 Cefuroxime Axetil [Cefuroxime] 500 mg PO BID #14 tab 02/05/23 New Medications: Cefuroxime Axetil [Cefuroxime] 500 mg PO BID #14 tab Diet: Regular Activity: Ad carlos Followup: Malcolm Grayson MD [Primary Care Provider] - Time spent managing pt's care (in minutes): 27
[2023-02-05] MEDS ORDERED: HOME MED 1 EA UNK PO SCH (21:00)
== END 2023-02-05 11:49 | disposition home or self-care (01) ==
LOC: ER 11:49 → 2ND 17:01
PROVIDERS: ADMIT Internal Medicine; ATTEND Internal Medicine
DX: R11.10 Vomiting, unspecified (principal); K59.04 Chronic idiopathic constipation; J18.9 Pneumonia, unspecified organism; F84.0 Autistic disorder; G40.909 Epilepsy, unspecified, not intractable, without status epilepticus; Z20.822 Contact with and (suspected) exposure to COVID-19
CPT/HCPCS: 85025 ×2; 81001; 36415; 83721; 83735; 84100; 80061; 84443; 84439; 83690; 80053 ×2; 87804 ×2; 74177; 74181; 76705; 96375; 96374; 99285; 87811; Q9967; J2550; J1644; J2405 ×2; J7042 ×2; J7050 ×2; J7030; J0696